=== PATIENT | male | born 1940 | race Caucasian/White ===

== ENCOUNTER 2018-09-22 07:01 | Inpatient (IN) | payer MEDICARE, BC ==
[2018-09-22 07:37] LABS: #Basophils 0.1 thou/uL (0.0-0.2); #Eosinphils 0.2 thou/uL (0.0-0.7); #Lymphocytes 2.6 thou/uL (1.20-3.40); #Monocytes 0.5 thou/uL (0.11-0.59); #Neutrophils 3.6 thou/uL (1.40-6.50); %Basophils 1.5 % (0.0-1.0); %Eosinophils 2.3 % (0.0-10.0); %Lymphocytes 36.8 % (21.0-51.0); %Monocytes 7.3 % (0.0-10.0); %Neutrophils 52.1 % (42.0-75.0); Hemoglobin 14.6 g/dL (14.0-18.0); Mean Corpuscular HGB CONC 31.3 g/dL (32.0-36.0); Mean Corpuscular Hemoglobin 30.5 pg (27.0-31.0); Mean Corpuscular Volume 97.6 fL (78.0-98.0); Mean Platelet Volume 8.7 fL (7.4-10.4); Platelet Count 223 thou/uL (130-400); RBC Distribution Width 12.1 % (11.5-14.5); White Blood Cell (WBC) Count 6.9 thou/uL (4.8-10.8)
[2018-09-22 07:53] LABS: ALT (SGPT) 18 U/L (8-55); AST (SGOT) 27 U/L (5-34); Albumin 3.9 g/dL (3.4-4.8); Alkaline Phosphatase 64 U/L (40-150); Anion Gap 22 mmol/L (10-20); BUN (Urea Nitrogen) 34 mg/dL (8.4-25.7); Bilirubin, Total 0.6 mg/dL (0.2-1.2); Calc. Creatinine Clearance 0 mL/min (70-130); Calcium 9.2 mg/dL (7.8-10.44); Carbon Dioxide 11 mmol/L (23-31); Chloride 98 mmol/L (98-107); Estimated GFR-MDRD 16; Globulin 2.9 g/dL (2.4-3.5); Glucose 101 mg/dL (83-110); Potassium 4.6 mmol/L (3.5-5.1); Protein, Total 6.8 g/dL (5.8-8.1); Sodium 126 mmol/L (136-145)
--- NOTE | 2018-09-22 08:52 | RAD ---
EXAM: CHEST ONE VIEW ABDOMEN TWO VIEWS: History: Abdominal pain, distention, and umbilical hernia. FINDINGS: No significant acute process in the chest. No free intraperitoneal air. Extensive post op changes in the pelvis with a central calcific nodular density of approximately 2.4 cm, possibly a bladder stone. No bowel obstruction. No other overt calculus. IMPRESSION: Extensive post op changes in the pelvis. 2.4 cm diameter fairly densely calcified stone in the centra l pelvis, possibly within the bladder or replaced bladder. POS: [facility]
--- NOTE | 2018-09-22 09:19 | PDOC.FPRHP ---
- History of Present Illness Chief Complaint: Pelvic Pain History of Present Illness: 78 yo Caucasion male w/ pmh of bladder cancer and bladder surgery comes in with the c/c of severe pelvic pain. Pt reports waking up and having sharp shooting pain in his pelvis. Pt reports not being able to pee. Pt reports abdomen feeling tight. Pt is very drowsy during the history. Pt dozes off multiple times and not able to fully obtain full ROS. Pt reports being tired due to the pain. Pt denies any nausea, vomiting, diarrhea or constipation. Pt denies any fever or chills. Denies any recent tingling or burning sensation when peeing. Pt denies seeing any recent blood in the urine - Allergies/Adverse Reactions Allergies Allergy/AdvReac Type Severity Reaction Status Date / Time Penicillins Allergy Verified 05/16/14 09:26 - Home Medications Medication Instructions Recorded Confirmed Type Amlodipine/Benazepril [Lotrel] 1 cap PO DAILY #0 cap 05/16/14 Rx Aspirin 325 mg PO DAILY 05/16/14 05/16/14 History Atorvastatin Calcium [Lipitor] 10 mg PO DAILY 05/16/14 05/16/14 History Metoprolol/Hydrochlorothiazide 1 tab PO DAILY 05/16/14 05/16/14 History [Metoprolol-Hctz 100-25 mg Tab] Multivitamin [Multi-Vitamin Daily] 1 tablet PO DAILY 05/16/14 05/16/14 History Nitroglycerin [Nitrostat] 0.4 mg PO Q5MIN PRN #0 tab 05/16/14 Rx [place]-3 Fatty Acids [Fish Oil] 300 mg PO DAILY 05/16/14 05/16/14 History Comments: Pt did not have medications with him. The above medication list may not be the most UTD medication list. Will have med recd and adjust as needed. - History PMHx: HTN, HLD, COPD, Osteoarthritis PSHx: Bladder Surgery FHx: Unable to obtain Social: used to smoke (quit 2001), Drinks beer daily, No illicit drug use - Review of Systems General: reports: fatigue. denies: fever/chills ENT: denies: nasal congestion Respiratory: denies: cough, shortness of breath Cardiovascular: denies: chest pain, palpitation, edema, orthopnea Gastrointestinal: reports: abdominal pain. denies: nausea, diarrhea, constipation Genitourinary: reports: other (Unable to pee, Severe pelvic pain. No blood noted in the urine). denies: incontinence Skin: denies: rashes, lesions, jaundice Musculoskeletal: denies: pain, stiffness Neurological: denies: numbness, seizure, weakness Psychological: denies: anxiety, depression - Vital signs BP: [144/83] HR: [56] RR: [16] Tmax: [97.7] Pox: [97]% on [RA] Wt: [] - Physical Exam -Constitutional: Pt lethargic and drowsy. Keeps dosing off during the exam. Pt only able to answer short ended questions HEENT: normocephalic and atraumatic, conjunctiva clear, no scleral icterus, normal nasal mucosa, MMM Neck: supple, trachea midline, no LAD, no JVD Heart: RRR, normal S1/S2, no murmurs/rubs/gallops, pulses present, no edema Lungs: CTAB, no respiratory distress, good air movement, no rales/rhonchi, no wheezing Abdomen: bowel sounds present -Abdomen: Moderately distended. Possible umbilical hernia noted. No sign of redness or inflammation. Pt tender to palpation in UQ and in pelvic area. Severe CVA tenderness in R. side. Possible R. sided swelling. Musculoskeletal: normal structure, ROM grossly normal Neurological: no focal deficit, normal sensation -Neurological: Hard to assess due to pt mental status Skin: no rash/lesions, capillary refill <2 seconds, no jaundice -Psychiatric: Pt lethargic, fully to assess mental capacity. FMR H&P: Results - Labs Result Diagrams: 09/22/18 07:19 09/22/18 07:19 Lab results: WBC 6.9 thou/uL (4.8-10.8) 09/22/18 07:19 Hgb 14.6 g/dL (14.0-18.0) 09/22/18 07:19 Hct 46.8 % (42.0-52.0) 09/22/18 07:19 MCV 97.6 fL (78.0-98.0) 09/22/18 07:19 Plt Count 223 thou/uL (130-400) 09/22/18 07:19 Neutrophils % 52.1 % (42.0-75.0) 09/22/18 07:19 Sodium 126 mmol/L (136-145) L 09/22/18 07:19 Potassium 4.6 mmol/L (3.5-5.1) 09/22/18 07:19 Chloride 98 mmol/L (98-107) 09/22/18 07:19 Carbon Dioxide 11 mmol/L (23-31) L 09/22/18 07:19 BUN 34 mg/dL (8.4-25.7) H 09/22/18 07:19 Creatinine 3.69 mg/dL (0.7-1.3) H 09/22/18 07:19 Glucose 101 mg/dL (83-110) 09/22/18 07:19 Calcium 9.2 mg/dL (7.8-10.44) 09/22/18 07:19 Total Bilirubin 0.6 mg/dL (0.2-1.2) 09/22/18 07:19 AST 27 U/L (5-34) 09/22/18 07:19 ALT 18 U/L (8-55) 09/22/18 07:19 Alkaline Phosphatase 64 U/L (40-150) 09/22/18 07:19 Serum Total Protein 6.8 g/dL (5.8-8.1) 09/22/18 07:19 Albumin 3.9 g/dL (3.4-4.8) 09/22/18 07:19 - Radiology Interpretation Abdominal x-ray Status: image reviewed by me, report reviewed by me (Extensive post op changes in pelvis. 2.4 fairly densley calcified stone in central plevis, possibly in bladder) FMR H&P: A/P - Problem List (1) ROSIO (acute kidney injury) Current Visit: Yes Status: Acute Code(s): N17.9 - ACUTE KIDNEY FAILURE, UNSPECIFIED (2) Uropathy, obstructive Current Visit: Yes Status: Acute Code(s): N13.9 - OBSTRUCTIVE AND REFLUX UROPATHY, UNSPECIFIED (3) Urinary retention Current Visit: Yes Status: Acute Code(s): R33.9 - RETENTION OF URINE, UNSPECIFIED (4) Hyponatremia Current Visit: Yes Status: Acute Code(s): E87.1 - HYPO-OSMOLALITY AND HYPONATREMIA (5) Metabolic acidosis, increased anion gap Current Visit: Yes Status: Acute Code(s): E87.2 - ACIDOSIS (6) HTN (hypertension) Current Visit: Yes Status: Acute Code(s): I10 - ESSENTIAL (PRIMARY) HYPERTENSION (7) HLD (hyperlipidemia) Current Visit: Yes Status: Acute Code(s): E78.5 - HYPERLIPIDEMIA, UNSPECIFIED - Plan ROSIO 2/2 Obstructive Uropathy -Cr elevated. Calcification seen on Ab xray. R. side CVA tenderness -Renal U/S ordered. -Sales catheter to be placed. -Will continue to trend BMP -Possibly consult urology if pain doesn't improve after catheter placement -Will check urinalysis and urine cx. No fever or signs of infection at this time. Anion Gap Metabolic Acidosis 2/2 Uremia -BUN elevated. -CO2 11. Anion Gap 17 -Will check ABG -Pt somewhat letargic. If doesn't improve after cather placement and depending on results of ABG will possibly consider Nephrology consult. May benefit from sodium bicarb Hyponatremia -Continue to trend. Hold fluid replacement until obstruction resolved. Do not want to fluid overload HTN -continue home meds HLD -continue home meds GERD PPX: tums DVT PPX: lovenox
[2018-09-22 09:49] LABS: Bilirubin Negative (Negative); Blood, Urine Large (Negative); Clarity CLOUDY (Clear); Glucose, Urine (Dipstick) Negative (Negative); Leukocyte Large (Negative); Nitrite Negative (Negative); Protein, Urine (Dipstick) Negative (Neg-Trace); Urobilinogen 0.2 mg/dL (0.2-1.0)
[2018-09-22 09:51] LABS: RBC/HPF GREATER THAN 50-TNTC HPF (0-3); Squamous Epithelial 0-3 HPF (0-3); Yeast-AUWi Flag 15.8 (0-25.0)
[2018-09-22 10:02] LABS: Bacteria/HPF 2+ HPF (None Seen)
[2018-09-22 10:03] LABS: Hyaline Casts/LPF NONE SEEN LPF (0-3 Hyaline)
[2018-09-22] MEDS ORDERED: cefTRIAXone Sodium 1 MG in Syringe 0 ML IVPB SCH (10:45)
[2018-09-22] MEDS ORDERED: cefTRIAXone\\ROCEPHIN 1 GM VIAL ONE (11:51)
--- NOTE | 2018-09-22 12:22 | HP ---
HISTORY OF PRESENT ILLNESS: I have examined the patient. I have discussed the case with Dr. Justin Juan and agree with his assessment and plan. Briefly, Mr. Rodrigues is a 78-year-old white male patient who, 7 years ago, had a surgery for "bladder cancer." He presented to our ER with sharp shooting pains in his pelvis that was moderately severe in intensity. On examination, he does have a distended abdomen, although the preliminary plain films do not show any evidence of obstruction. A Sales has been placed and he does have urine in his bladder. PHYSICAL EXAMINATION: GENERAL: He is very drowsy, but arousable. VITAL SIGNS: His blood pressure is 140/80, his heart rate is 60, respirations are 16, and he is afebrile. His room air pulse ox is 97%. EAR, NOSE, AND THROAT: Mucous membranes are very dry. NECK: Supple. CARDIAC: PMI is in the 5th intercostal space, midclavicular line. S4 gallop. No murmur or rub noted. Heart sounds are distant. LUNGS: Clear, but breath sounds are distant. There is no wheezing. He is not using accessory muscles and does not demonstrate any evidence of respiratory distress. ABDOMEN: Distended and very tender. He has a midline incision allegedly from previous bladder surgery 7 years ago. Bowel sounds are diminished to absent. EXTREMITIES: Trace edema. NEUROLOGIC: Drowsy but arousable. No focal deficits. LABORATORY DATA: Urinalysis shows large blood, large leukocyte esterase, negative urine nitrites, greater than 50 to TNTC red blood cells, greater than 50 to TNTC white blood cells, 2+ bacteria. Chemistry; sodium is 126, potassium is 4.6, chloride is 98, bicarb is 11, his anion gap is slightly elevated at 22, BUN is 34, creatinine is 3.69, I do not know his baseline. Glucose is 101. Liver enzymes are normal. CBC; white count is 6900, hemoglobin was 14.6, hematocrit 46.8 with an MCV of 97. ASSESSMENT: 1. Possible bowel obstruction. 2. Possible obstructive uropathy. 3. Rule out sepsis, although does not currently meet SIRS criteria. 4. Urinary tract infection, possible. PLAN: We will get CT of the abdomen and pelvis. We will obtain blood and urine cultures and going to give 1 g of Rocephin given his very abnormal urinalysis. Further tests will depend on results of our preliminary examinations. Job ID: [id number]
[2018-09-22] MEDS ORDERED: Morphine 2 MG/ML SYRINGE ONE (12:23)
[2018-09-22] MEDS ORDERED: Acetaminophen 325 MG TAB PO PRN (14:18)
[2018-09-22] MEDS ORDERED: Senokot S 8.6-50 MG TAB PO PRN (14:18)
[2018-09-22] MEDS ORDERED: Calcium Carbonate 500 MG ChewTAB PO PRN (14:18)
[2018-09-22] MEDS ORDERED: Bisacodyl 5 MG TAB PO PRN (14:18)
[2018-09-22] MEDS ORDERED: Acetaminophen 650 MG Suppository PR PRN (14:18)
[2018-09-22] MEDS ORDERED: Ondansetron ODT 4 MG TAB PO PRN (14:18)
[2018-09-22] MEDS ORDERED: Enoxaparin Sodium 30 MG/0.3 ML SYRINGE SC SCH (14:30)
[2018-09-22 14:47] LABS: Magnesium 2.4 mg/dL (1.6-2.6); Phosphorus 6.3 mg/dL (2.3-4.7)
--- NOTE | 2018-09-22 16:17 | ULT ---
BILATERAL RENAL ULTRASOUND: 09/22/18 HISTORY: Obstruction. FINDINGS: The right kidney measures 11.3 cm in length and the left kidney measures 10.4 cm in length. No hydron ephrosis or focal masses seen. Tiny echogenic foci is seen in the kidneys which may represent no obst ructing calculi or vascular calcifications. The right renal pelvis is dilated. There is a Sales destin ter in the urinary bladder. IMPRESSION: No evidence of high grade obstruction. POS: [facility]
--- NOTE | 2018-09-22 17:50 | CT ---
CT OF THE ABDOMEN AND PELVIS WITHOUT IV CONTRAST: 09/22/18 INDICATION: Lower abdominal pain, abdominal distention with history of an artificial bladder. COMPARISON: None. FINDINGS: There is suspected subsegmental volume loss within both lower lobes related to bilateral pleural effu sions. There is enteric contrast within the esophagus. There are coronary artery calcifications. There is mild to moderate ascites. There are numerous stones within the gallbladder. The unopacified liver is unremarkable. Unopacified spleen is unremarkable. The pancreas and adrenal glands are unremarkable. There is mild right hydronephrosis and hydroureter that extends down to the level of the patient's neobladder. There is a stone measuring 2.6 cm in the region of the decompressed neobladder. There is a Sales catheter within the lower aspect of the bladd er. Numerous surgical clips are seen within the pelvis. There are a few mildly prominent loops of sma ll bowel within the central abdomen without a definite transition zone. There is a large left inguina l hernia containing fat, fluid, and portions of the sigmoid colon. There is scattered degenerative and osteoarthritic change. IMPRESSION: 1. Findings of cystectomy with development of a neobladder. There is a large bladder stone withi n the lower portion of the neobladder itself. There is mild right hydronephrosis and hydroureter, con tiguous to the level of the neobladder. 2. Small bilateral pleural effusion and bibasilar atelectasis. 3. Mild to moderate ascites. 4. Cholelithiasis. 5. Colonic diverticulosis without evidence of active diverticulitis. 6. Mildly prominent loops of small bowel within the central abdomen without a definite transitio n zone. This can be artifactual related to distention with the enteric contrast; however, mild enteri tis cannot be entirely excluded. 7. Large left inguinal hernia containing fat, fluid and portions of the sigmoid colon. 8. Fat containing umbilical hernia. POS: [facility]
[2018-09-22 18:24] LABS: Lactic Acid 3.5 mmol/L (0.5-2.2)
[2018-09-22 19:45] LABS: Base Excess (BEa) -4.2 mEq/L (-2.0 to +3.0); CO2 Tension 34.3 mmHg (35.0-45.0); Carboxyhemoglobin (COHb) 2.1 gm% (0.0-3.0); Hemoglobin (Hb) 13.5 g/dL (14.0-18.0); Potassium - ABG Lab 4.18 mmol/L (3.70-5.30); pH, Arterial 7.38 (7.35-7.45)
[2018-09-22] MEDS ORDERED: guaiFENesin 200 MG TAB PO PRN (20:56)
[2018-09-22] MEDS: Atorvastatin Calcium 10 MG TAB PO SCH (21:18)
[2018-09-22] MEDS: Sodium Chloride 0.9% 1,000 ML IV SCH (21:18)
[2018-09-22 22:05] LABS: Anion Gap 15 mmol/L (10-20); BUN (Urea Nitrogen) 40 mg/dL (8.4-25.7); Calc. Creatinine Clearance 35 mL/min (70-130); Calcium 8.6 mg/dL (7.8-10.44); Carbon Dioxide 21 mmol/L (23-31); Chloride 95 mmol/L (98-107); Estimated GFR-MDRD 24; Glucose 82 mg/dL (83-110); Potassium 4.3 mmol/L (3.5-5.1); Sodium 127 mmol/L (136-145)
[2018-09-22 22:17] LABS: O2 Tension (PaO2) 59.2 mmHg (> 70.0)
[2018-09-23] MEDS: Sodium Chloride 0.9% 1,000 ML IV SCH ×3 (05:52→18:30)
[2018-09-23 06:25] LABS: Anion Gap 14 mmol/L (10-20); BUN (Urea Nitrogen) 33 mg/dL (8.4-25.7); Calc. Creatinine Clearance 55 mL/min (70-130); Calcium 8.6 mg/dL (7.8-10.44); Carbon Dioxide 21 mmol/L (23-31); Chloride 97 mmol/L (98-107); Estimated GFR-MDRD 39; Glucose 78 mg/dL (83-110); Potassium 4.2 mmol/L (3.5-5.1); Sodium 128 mmol/L (136-145)
[2018-09-23 06:32] LABS: Band 43 % (5-11); Hemoglobin 14.3 g/dL (14.0-18.0); Lymphocytes 3 % (21-51); MDiff Complete? YES; Mean Corpuscular HGB CONC 32.8 g/dL (32.0-36.0); Mean Corpuscular Hemoglobin 31.5 pg (27.0-31.0); Mean Platelet Volume 8.8 fL (7.4-10.4); Monocytes 5 % (0-10); Neutrophil 48 % (42-75); Platelet Count 159 thou/uL (130-400); RBC Distribution Width 12.1 % (11.5-14.5); Reactive Lymphocytes 1 % (0-10); Red Blood Cell (RBC) Count 4.53 mill/uL (4.70-6.10); White Blood Cell (WBC) Count 10.2 thou/uL (4.8-10.8)
[2018-09-23 06:35] LABS: Reflex for Review?? YES
--- NOTE | 2018-09-23 06:51 | PDOC.FM ---
- Subjective Subjective: Pt A&Ox3. Pt reports still having overall abdominal pain. Pt reports pain medicine helps some but then goes away. Pt states this feels different than when he had kidney stone. Denies any vomiting. Denies any chest pain or SOB. Denies any burning sensation. Denies any fever or chills. Denies any acute events overnight. - Objective MAR Reviewed: Yes Vital Signs & Weight: Vital Signs (12 hours) Temp Pulse Resp BP Pulse Ox 09/23/18 03:09 98.0 F 91 22 H 129/58 L 95 09/22/18 23:37 98.6 F 93 22 H 122/57 L 94 L 09/22/18 20:00 99.4 F 88 18 144/64 H 95 Weight Weight 105.37 kg I&O: 09/21/18 09/22/18 09/23/18 06:59 06:59 06:59 Intake Total 1571 Output Total 1100 Balance 471 Result Diagrams: 09/23/18 05:22 09/23/18 05:22 EKG Reviewed by me: Yes Radiology Reviewed by me: Yes Radiology: Abdominal/Pelvis CT: Findins of cystectomy w/ development of neobladder. Large bladder stone in lower portion. Mild right hydroneprhosis, hydroureter. Cholelithiasis. Chronic diverticulosis Mildly prominent loops of small bowel within the central abdomen w/o a definite transition zone. Can be artifactual related to distention w/ the enteric contrast. However enteritis cannot be entirely excluded. Large left inguinal hernia containing fat, fluid and portions of sigmoid colon Phys Exam - Physical Examination Constitutional: NAD HEENT: PERRLA, moist MMs Neck: no nodes, supple, full ROM Respiratory: no wheezing, no rales, no rhonchi, clear to auscultation bilateral Cardiovascular: RRR, no significant murmur, no rub Belly very distended, Tight. Pain to palpation in all quadrants. No massess Musculoskeletal: no edema, pulses present Neurological: non-focal, normal sensation, moves all 4 limbs Lymphatic: no nodes Psychiatric: normal affect, A&O x 3 Skin: no rash, normal turgor, cap refill <2 seconds Dx/Plan (1) ROSIO (acute kidney injury) Code(s): N17.9 - ACUTE KIDNEY FAILURE, UNSPECIFIED Status: Acute (2) Uropathy, obstructive Code(s): N13.9 - OBSTRUCTIVE AND REFLUX UROPATHY, UNSPECIFIED Status: Acute (3) Urinary retention Code(s): R33.9 - RETENTION OF URINE, UNSPECIFIED Status: Acute (4) Hyponatremia Code(s): E87.1 - HYPO-OSMOLALITY AND HYPONATREMIA Status: Acute (5) HTN (hypertension) Code(s): I10 - ESSENTIAL (PRIMARY) HYPERTENSION Status: Acute (6) HLD (hyperlipidemia) Code(s): E78.5 - HYPERLIPIDEMIA, UNSPECIFIED Status: Acute (7) Abdominal distention Code(s): R14.0 - ABDOMINAL DISTENSION (GASEOUS) Status: Acute (8) SBO (small bowel obstruction) Code(s): K56.609 - UNSP INTESTNL OBST, UNSP TO PARTIAL VERSUS COMPLETE OBST Status: Suspected (9) Strangulated inguinal hernia Code(s): K40.30 - UNIL INGUINAL HERNIA, W OBST, W/O GANGR, NOT SPCF RECUR Status: Suspected (10) Metabolic acidosis, increased anion gap Code(s): E87.2 - ACIDOSIS Status: Resolved - Plan Plan: ROSIO 2/2 Obstructive Uropathy -Cr continues to trend down. Calcification seen on Ab xray. R. side CVA tenderness -LR @120 mls/hr -CT findings read above. -Renal U/S shows no severe acute obstructive process. -Sales catheter in place -Possibly consult urology if pain doesn't improve after catheter placement UTI -U/A shows sign of infection. Lactic acid elevated. -Rocephin for Abx coverage -Urine cx pending. Abdominal Pain 2/2 SBO vs Strangluated Hernia vs Problem above -CT abdominal/pelvis shows some dilated loops of bowel. Abdomen more distended compared to today. Has signs of sigmoid colon in inguinal hernia seen on CT scan. -May consider surgical consult at this time. -NPO for now. -LR @120 mls/hr -Morphine PRN. May adjust pain medications if not getting adequate relief -blood cx pending- NGTD Hyponatremia -Continue to trend. -LR @120 mls/hr HTN -hold home meds as BP is stable at this time. HLD -continue home meds Anion Gap Metabolic Acidosis (resolved) -BUN elevated. -CO2 21. Anion Gap 10 Addendum - Attending - Attending Attestation Date/Time: 09/23/18 4515 I personally evaluated the patient and discussed the management with Dr. Juan. I agree with the History, Examination, Assessment and Plan documented above with any addition or exceptions noted below. Patient here for presumed obstructive uropathy that has consistently been improving after Sales catheter insertion. Consult Urology. He continues to have abdominal distension and pain and exam shows very hypoactive bowel sounds, ileus versus possible obstruction as he is at risk with hernia containing sigmoid colon. Consider decompression. Labs overall improved but continues to be in pain. Will need further workup and mgmt.
[2018-09-23] MEDS: Enoxaparin Sodium 30 MG/0.3 ML SYRINGE SC SCH (08:55)
[2018-09-23] MEDS ORDERED: Atorvastatin Calcium 10 MG TAB PO SCH (09:00)
[2018-09-23] MEDS: Morphine 4 MG/ML VIAL SLOW IVP PRN ×2 (09:06→09:30)
[2018-09-23] MEDS: Ondansetron PF 4 MG/2 ML Vial IVP PRN ×2 (09:17→20:34)
[2018-09-23] MEDS: Fish Oil 1,000 MG CAP PO SCH (09:44)
[2018-09-23] MEDS: Aspirin 325 MG TAB PO SCH (09:44)
[2018-09-23] MEDS: Multivit, Therapeutic 1 TAB PO SCH (09:45)
[2018-09-23] MEDS ORDERED: Famotidine/PF 20 mg/2ml Vial SLOW IVP SCH (09:45)
[2018-09-23] MEDS: cefTRIAXone\\ROCEPHIN 1 GM in Sodium Chloride 0.9% 100 ML IVPB SCH (10:23)
[2018-09-23] MEDS: Aspirin 300 MG Suppository PR SCH (10:24)
[2018-09-23] MEDS ORDERED: MD-Gastroview 120 ML BOT ONE (10:34)
--- NOTE | 2018-09-23 11:07 | RAD ---
ABDOMEN ONE VIEW: History: NG tube placement, abdominal distention. Comparison: None. FINDINGS: Enteric tube is in place although the tip is not well seen. Lung bases are hypoinflated. Ingested ora l contrast appears to be in the colon. IMPRESSION: Poorly visualized enteric tube tip. Repeat examination recommended with better penetration. POS: [facility]
--- NOTE | 2018-09-23 14:39 | RAD ---
SMALL BOWEL FOLLOW THROUGH: History: Small bowel obstruction. Comparison: CT abdomen and pelvis, prior day. FINDINGS: On the diagrammer radiograph there is contrast within the large bowel. Subsequently, Gastrografin was given via the patient's enteric tube. Contrast passed through the smal l through the large bowel in two hours. IMPRESSION: No evidence of small bowel obstruction. POS: [facility]
--- NOTE | 2018-09-23 15:14 | CT ---
CT PELVIS WITH AND WITHOUT URINARY BLADDER CONTRAST: History: Free fluid throughout the pelvis. Possible neobladder leak. Previous bladder cancer with cystectomy a nd neobladder placement. FINDINGS: Images were obtained before contrast administration, after administration of 200 cc dilute contrast i nto the bladder and after drainage of the bladder. The gallstones and prominent arterial calcifications are again demonstrated. Large stone within the u rinary bladder now lies just to the left of the Sales catheter balloon. The neobladder was moderately distended with contrast. Multiple recesses are present. No contrast was seen to extend outside of the lumen of the neobladder. Free fluid within the pelvis was similar in a ppearance to the previous exam. Left inguinal hernia is again demonstrated. IMPRESSION: No evidence of leakage from the neobladder. Large urinary bladder stone and other findings are otherw ise stable. POS: [facility]
[2018-09-23] MEDS: metroNIDAZOLE 500 MG in Premix Bag 1 BAG IVPB SCH (18:25)
--- NOTE | 2018-09-23 19:42 | CON ---
DATE OF CONSULTATION: 09/23/2018 SUBJECTIVE: This is a 78-year-old white male who was admitted yesterday. He cares for his , he gets up early. She has Parkinson's and some dementia, gets up early around 5:30. He has had kind of an upper respiratory tract infection and has been producing a lot of mucus and a lot of coughing and said he was coughing really hard and then developed lower abdominal pain and periumbilical pain that became worse. He had some nausea, but no vomiting. No fevers, no chills. Pain got bothersome enough that he told his that he would need to go to the emergency room and he called the ambulance, he came in, was seen here. At 7 o'clock yesterday morning, his white count was normal, his hemoglobin was 14, his creatinine was 3.69 and his urine showed white cells and red cells and 2+ bacteria. He had a Sales catheter placed in the ER. He has a neobladder, had bladder cancer, had a cystoprostatectomy over [address] Jw Quach, one at [facility], urologist, and Dr. Quach left and moved out of town and the patient says he has not seen a urologist since. He says he normally urinates, sometimes with difficulty through the neobladder. He does have some incontinence in the evenings, which is not unusual. He has not had blood in the urine. He has not seen a urologist for a number of years, he says since Dr. Quach left and that was actually quite a number of years ago. He generally does not cath ever and he does not worry about mucus from this. He had a CAT scan done yesterday, it was done with some oral contrast, but no IV contrast because of elevated creatinine. He had normal-appearing kidneys without stones. He had some mild right hydro. He has decent-sized calcifications probably in the neobladder. It looked to me like he had some free fluid. I asked Dr. Peña to read that x-ray today with me and there is some free fluid in the pelvis. He is in the process of getting a small bowel follow-through because of his abdominal pain. I have talked with Dr. Peña about doing a CT cystogram as I think there is a possibility that he actually has a neobladder rupture. This would explain the rise in the creatinine, the abdominal pain occurring after vigorous coughing. This will be done this afternoon. PAST MEDICAL HISTORY: He has hypertension, hypercholesterolemia. He has had a major bladder surgery as mentioned. He also has some COPD. SOCIAL HISTORY: He has not smoked for well over 15 years. He does drink beer. ALLERGIES: HE HAS AN ALLERGY TO PENICILLIN. MEDICATIONS: He takes; 1. Amlodipine. 2. Aspirin. 3. Lipitor. 4. Toprol. 5. Hydrochlorothiazide. 6. Nitroglycerin p.r.n. 7. Multivitamins. PHYSICAL EXAMINATION: He is tender diffusely. His abdomen is distended. His urine is clear through the catheters. No blood. There is no particulate matter. There is no mucus. He has a left inguinal hernia and some swelling in the left scrotum. Right testicle is normal. Penis is without any other abnormality. IMPRESSION: Abdominal pain, elevated creatinine, which is improved with hydration with a Sales catheter placement and some free fluid on his CAT scan, the concern would be rupture of the neobladder. We will do a CT cystogram here this afternoon and see. If this indeed turns out to be a rupture of this neobladder, I do think this patient needs to be transferred to higher level of care for correction of this. This is not something that I do or take care of and nor do I think it is a common procedure be done at this point in [facility]. Job ID: [id number]
[2018-09-24] MEDS: metroNIDAZOLE 500 MG in Premix Bag 1 BAG IVPB SCH ×3 (01:34→17:14)
[2018-09-24] MEDS: Sodium Chloride 0.9% 1,000 ML IV SCH ×5 (01:39→20:56)
[2018-09-24 04:32] VITALS: BMI 47.7
--- NOTE | 2018-09-24 04:52 | CON ---
DATE OF CONSULTATION: 09/23/2018 HISTORY OF PRESENT ILLNESS: This is a 78-year-old gentleman with past medical history of bladder cancer and bladder surgery with a neobladder, who presented to the emergency room with severe pelvic pain and abdominal pain. General Surgery was consulted for a possible small-bowel obstruction versus granulated hernia. The patient reports his last bowel movement was 2 days ago. He did pass gas yesterday. Reports some nausea, but no vomiting. The patient is awake and alert and just had an NG tube placed to low wall suction. The patient does report a recent cough, although nonproductive. The patient denies any shortness of breath, chest pain , or palpitations. PHYSICAL EXAMINATION: VITAL SIGNS: Temperature 98.5, pulse 99, respirations 19, SpO2 93% on room air , and blood pressure 125/58. GENERAL: The patient is awake, alert, in mild distress due to abdominal discomfort. HEENT: Normocephalic and atraumatic. Mucous membranes are moist. The patient with nasal congestion. Trachea is midline. No JVD. LUNGS: No respiratory distress. Bilateral breath sounds clear to auscultation. The patient with good air movement. No rales or rhonchi noted. CARDIOVASCULAR: Regular rate and rhythm. No murmurs noted. No pedal edema. ABDOMEN: Diffuse tenderness with palpation, worse in the left lower quadrant. The patient with a healed midline abdominal incision. The patient also with abrasion under the umbilicus with bruising above the umbilicus, states that his 's walker fell and hit him in the abdomen. The patient without guarding or rebound tenderness. Abdomen is distended, but soft. The patient with swollen testicles. Pain with palpation. LABORATORY DATA: WBC 10.2, RBC 4.52, hemoglobin 14.3, hematocrit 43.5, platelets 153, bands 43, and lymphocytes 3. Sodium 128, potassium 4.2, chloride 97, BUN 33, creatinine 1.70, and glucose 78. DIAGNOSTICS: Small-bowel follow-through, contrast passed through the small intestine through the large bowel in 2 hours. Impression, no evidence of small bowel obstruction. IMPRESSION: Abdominal pain, small bowel obstruction ruled out. PLAN: No surgical intervention at this time as the patient had a negative small bowel follow-through. Patient continues to have abdominal pain. Will continue to follow this patient. This patient was examined with Dr. Escobar. Job ID: [id number] [facility]ALTHRobert
--- NOTE | 2018-09-24 06:40 | PDOC.FM ---
- Subjective Subjective: Pt reports having sharp shooting pelvic pain overnight. It was like the same pain that made him come to the hospital. Reports having BM yesterday. Pt thinks his hernia has gotten bigger. Pt denies any chest pain or SOB. Denies any vomiting, diarrhea or constipation. Pt reports current pain regimen controlling pain at this time. Nurse reports after pain episode had to replace catheter as it was not draining. Draining now and patient feeling better. - Objective Vital Signs & Weight: Vital Signs (12 hours) Temp Pulse Resp BP Pulse Ox 09/24/18 04:19 97.4 F L 111 H 21 H 127/64 95 09/23/18 20:00 97.9 F 102 H 18 137/68 94 L Weight Weight 146.51 kg I&O: 09/22/18 09/23/18 09/24/18 06:59 06:59 06:59 Intake Total 1571 2433 Output Total 1100 4800 Balance 471 -0855 Result Diagrams: 09/23/18 05:22 09/23/18 05:22 Radiology Reviewed by me: Yes (Abdomen x-ray taken today. Awaiting official read ) Radiology: CT Pelvis- No evidence of leakage from neobladder. Large urinary bladder stone Small Bowel follow through- No evidence of SBO Phys Exam - Physical Examination Constitutional: NAD HEENT: PERRLA, moist MMs Neck: no nodes, full ROM Respiratory: no wheezing, no rales, no rhonchi, clear to auscultation bilateral Cardiovascular: RRR, no significant murmur, no rub Severly distended. Better compared to yesterday Moderately tender to palpation. Hernia appears red, hard to palpation Musculoskeletal: no edema, pulses present Neurological: non-focal, normal sensation, moves all 4 limbs Lymphatic: no nodes Psychiatric: normal affect, A&O x 3 Skin: no rash, normal turgor, cap refill <2 seconds Dx/Plan (1) ROSIO (acute kidney injury) Code(s): N17.9 - ACUTE KIDNEY FAILURE, UNSPECIFIED Status: Acute (2) Uropathy, obstructive Code(s): N13.9 - OBSTRUCTIVE AND REFLUX UROPATHY, UNSPECIFIED Status: Acute (3) Abdominal distention Code(s): R14.0 - ABDOMINAL DISTENSION (GASEOUS) Status: Acute (4) Urinary retention Code(s): R33.9 - RETENTION OF URINE, UNSPECIFIED Status: Acute (5) Hyponatremia Code(s): E87.1 - HYPO-OSMOLALITY AND HYPONATREMIA Status: Acute (6) HTN (hypertension) Code(s): I10 - ESSENTIAL (PRIMARY) HYPERTENSION Status: Acute (7) HLD (hyperlipidemia) Code(s): E78.5 - HYPERLIPIDEMIA, UNSPECIFIED Status: Acute (8) SBO (small bowel obstruction) Code(s): K56.609 - UNSP INTESTNL OBST, UNSP TO PARTIAL VERSUS COMPLETE OBST Status: Ruled-out (9) Strangulated inguinal hernia Code(s): K40.30 - UNIL INGUINAL HERNIA, W OBST, W/O GANGR, NOT SPCF RECUR Status: Suspected (10) Metabolic acidosis, increased anion gap Code(s): E87.2 - ACIDOSIS Status: Resolved - Plan Plan: ROSIO 2/2 Obstructive Uropathy -Awaiting morning BMP. Calcification seen on Ab xray. R. side CVA tenderness -NS @125 mls/hr -CT findings read above. -Renal U/S shows no severe acute obstructive process. -Sales catheter in place -Urology consulted- Lin- Got CT exam as above. Possible concern there was a small leakage in neobladder causing infection. Thinks could have resolved. -Rocephin and Flagyl for abx coverage. UTI -U/A shows sign of infection. Lactic acid elevated upon admission. -abx coverage per above. -Urine cx pending. Abdominal Pain 2/2 SBO vs Strangluated Hernia vs Problem above -CT abdominal/pelvis shows some dilated loops of bowel. -Small Bowel Follow throught negative. 09/24 Ab xray- official read pending. -Pt hernia red and hard today. -Surgery- Dr. Escobar consutled- will follow recs. -NPO for now. - NS @125 mls/hr -Morphine PRN. pain regimen controlling pain at this time. -blood cx pending- NGTD Hyponatremia -Continue to trend. -NS @ 125 mls/hr HTN -hold home meds as BP is stable at this time. HLD -continue home meds Anion Gap Metabolic Acidosis (resolved) -BUN elevated upon admission. -CO2 21. Anion Gap 10 Addendum - Attending - Attending Attestation Date/Time: 09/24/18 0700 I personally evaluated the patient and discussed the management with Dr. Juan. I agree with the History, Examination, Assessment and Plan documented above with any addition or exceptions noted below. Patient continues to have some lower abdominal and diffuse pain. Reports improvement after replacement of Sales and of NGT. Had small liquid BM yesterday and not as distended today. Sales now draining. No evidence of bladder leak on cystogram yesterday. Awaiting further urology recs. Will encourage ambulation today to see if we can get this possible ileus to resolve. Patient continues NPO. Labs stable.
[2018-09-24 07:40] LABS: #Lymphocytes 0.7 thou/uL (1.20-3.40); #Monocytes 0.6 thou/uL (0.11-0.59); %Basophils 0.3 % (0.0-1.0); %Eosinophils 0.1 % (0.0-10.0); %Lymphocytes 6.3 % (21.0-51.0); %Monocytes 5.1 % (0.0-10.0); %Neutrophils 88.2 % (42.0-75.0); Hemoglobin 13.7 g/dL (14.0-18.0); Mean Corpuscular HGB CONC 32.6 g/dL (32.0-36.0); Mean Corpuscular Hemoglobin 31.3 pg (27.0-31.0); Mean Corpuscular Volume 95.9 fL (78.0-98.0); Mean Platelet Volume 8.8 fL (7.4-10.4); Platelet Count 157 thou/uL (130-400); RBC Distribution Width 12.1 % (11.5-14.5); Red Blood Cell (RBC) Count 4.38 mill/uL (4.70-6.10); White Blood Cell (WBC) Count 11.3 thou/uL (4.8-10.8)
[2018-09-24 08:06] LABS: Anion Gap 13 mmol/L (10-20); BUN (Urea Nitrogen) 29 mg/dL (8.4-25.7); Calc. Creatinine Clearance 90 mL/min (70-130); Carbon Dioxide 22 mmol/L (23-31); Chloride 105 mmol/L (98-107); Estimated GFR-MDRD 47; Glucose 105 mg/dL (83-110); Potassium 3.8 mmol/L (3.5-5.1); Sodium 136 mmol/L (136-145)
[2018-09-24] MEDS: Famotidine/PF 20 mg/2ml Vial SLOW IVP SCH (08:06)
[2018-09-24] MEDS: Enoxaparin Sodium 30 MG/0.3 ML SYRINGE SC SCH (08:06)
[2018-09-24] MEDS: Aspirin 300 MG Suppository PR SCH (08:06)
--- NOTE | 2018-09-24 08:43 | RAD ---
KUB: DATE: 09/24/2018. PROVIDED CLINICAL HISTORY: Evaluate NG placement. FINDINGS: Enteric catheter is noted, the tip of which projects over the left upper quadrant. Visualized lung b ases appear clear. Contrast material is seen within bowel. The visualized bowel gas pattern is nons pecific. IMPRESSION: Enteric catheter positioning as above. POS: [facility]
[2018-09-24] MEDS: Multivit, Therapeutic 1 TAB PO SCH (09:04)
[2018-09-24] MEDS: Fish Oil 1,000 MG CAP PO SCH (09:04)
[2018-09-24] MEDS: Enoxaparin Sodium 40 MG/0.4 ML SYRINGE SC SCH (09:06)
[2018-09-24] MEDS: Acetaminophen 500 MG TAB PO SCH ×3 (10:23→20:57)
[2018-09-24] MEDS: cefTRIAXone\\ROCEPHIN 1 GM in Sodium Chloride 0.9% 100 ML IVPB SCH (10:24)
--- NOTE | 2018-09-24 18:00 | PRG ---
DATE OF SERVICE: 09/24/2018 This is the patient I saw in consultation yesterday and I saw him again today at lunchtime, came in with abdominal pain of uncertain etiology. He has a neobladder done by Dr. Quach over 10 years ago. He has a stone in the neobladder and we did a CT cystogram yesterday with Dr. Peña. There was no obvious evidence of a bladder leak, although his presentation was very suspicious for it. I saw him last evening and then I saw him again at lunchtime. He is actually feeling much better each time I see him. He has stable vital signs except for still being slightly tachycardic. His white blood cell count was minimally elevated at 11. His creatinine is staying low. He said he did have some pain early this morning when his catheter stopped draining because of mucus, it was just a small catheter he had in from the ER and the nurses could not irrigate it, they took it out and put a new one in. He says he has had really no discomfort since that time. He pulled his NG tube out last night and he has done well with it out and has actually been started on clear liquids at lunchtime today. His urine culture is not finalized yet. His abdomen is soft and much less tender than it was yesterday. His urine is clear. I am not still 100% sure that he did not have a small bladder leak when he presented to the ER yesterday. There is certainly nothing on the cystogram that showed it, but only 200 mL replaced, but it was CT cystogram also. In addition to that he had a lot of air in his neobladder from the catheter and there was no free air in the belly either. However, I would like to leave this larger catheter which I have asked them to place and they have placed today a 22-Polish in for 10-14 days and I would like to do a formal cystogram at that time before we tackle the stone in the neobladder. I think the plan even it was a bladder leak would be to just let it heal over with catheter drainage unless he becomes sick again with sepsis or abdominal pain or rising creatinine. I have discussed this with the family practice residents. Also let Dr. Jayme Terrell who is covering this weekend know about him, so he will be aware of him, also to see him, but certainly would be available if necessary to consult. Alex ID: [id number]
--- NOTE | 2018-09-24 19:07 | PRG ---
DATE OF SERVICE: 09/24/2018 SUBJECTIVE: Mr. Rodrigues is a 78-year-old man, who I am seeing to exclude acute small-bowel obstruction as the etiology of abdominal pain. The patient reported to me this morning that the Sales catheter malfunctioned overnight, and at that time, he was not able to pass urine, his pain was exacerbated. Once the Sales catheter was replaced, his abdominal pain has since resolved. This morning, he denies any significant abdominal pain. He denies any nausea or vomiting. He inadvertently pulled out the NG tube, which was not actually putting out a lot over the last 24 hours. He did have a bowel movement yesterday. The patient denies any flatus. PHYSICAL EXAMINATION: VITAL SIGNS: Vital signs today are pertinent for a blood pressure of 125/64, pulse 103, respiratory rate is 19, temperature 98.7 degrees Fahrenheit, and oxygen saturation 95% on room air. ABDOMEN: Soft and moderately distended. Definitely it is less distended compared to yesterday. He has minimal abdominal tenderness to palpation with no gross rebound tenderness present. : Sales catheter is in place, draining clear kiana urine. LABORATORY FINDINGS: Today include a CBC with 11,300 white blood cells, hemoglobin and hematocrit of 13.7 and 42.1 respectively. Platelet count is 157,000. Metabolic profile; sodium 136, potassium is 3.8, chloride is 105, bicarb is 22, BUN 29, creatinine is 1.45, glucose 105. Note that serum creatinine on admission 2 days ago was 3.69 and has been progressively improving since. The patient did have a Gastrografin small-bowel follow-through yesterday, which clearly was unremarkable as the contrast readily passed into the colon within 2 hours. He has a non-strangulated inguinal hernia, which has been chronic. I doubt the etiology of his abdominal pain is of general surgical matter. Therefore, initiating oral intake at this time. If the patient tolerates clear liquid diet, we will advance to a general diet. No surgical indication at this time. Job ID: [id number]
[2018-09-24] MEDS: Atorvastatin Calcium 10 MG TAB PO SCH (20:56)
[2018-09-24] MEDS: Polyethylene Glycol 3350 17 GM Packet PO SCH (20:57)
--- NOTE | 2018-09-24 23:17 | CON ---
DATE OF CONSULTATION: 09/24/2018 REASON FOR CONSULTATION: Concern for orthotopic neobladder rupture. HISTORY OF PRESENT ILLNESS: Mr. 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 Mr. Rodrigues underwent a cystoprostatectomy with orthotopic neobladder on 11/25/[address] Ricky Hernandez, my former partner at the [facility]. Mr. Rodrigues had unfortunate finding of stage pT3b bladder cancer with penetration of the cancer through the muscle layer and into the perivesicular fat. The patient had subsequent CT scanning which did not demonstrate any evidence of recurrence back in 2007. Mr. Rodrigues has been more or less lost to urologic followup since Dr. Hernandez moved from the area. Mr. Rodrigues's insurance is also changed and he has had some psychological stressors with his developing Alzheimer disease, and in addition Parkinson disease. He is her sole care provider. and Mrs. Rodrigues had an unfortunate family event around 2012 with the passing of her son and his stepson, in a motor vehicle accident. This still is a psychological stressor for the patient himself. Mr. Rodrigues on this admission presents with a complaint of acute lower abdominal discomfort which developed in association with sleeping. The patient apparently is fairly exhausted from the 24 x 7 care of his and fell into a deep sleep. When he woke up, he found himself with a sensation of pain in his lower abdomen and also wanted to void, but was not able to. The patient ultimately presented to the [facility] Emergency Department on 09/22/2018 and underwent an emergency room evaluation. He was admitted to the family medicine service. The patient underwent laboratory testing at admission, which showed a large jump in his creatinine since 2013. The patient has had a baseline creatinine of around 1.2, and this was finding as recently as 06/07/2018 when it was 1.21 mg/dL. The patient's creatinine jumped to 3.69 and with a Sales catheter placement is slowly drifted down over time. The patient did undergo CT scanning of his abdomen which did not demonstrate any obvious leak from the orthotopic neobladder. The patient's white count was noted on today's laboratory to be elevated at 11,300. At admission, his white count was only 6900. The patient does report that on the evening of 09/23/2018 to the morning of 09/24/2018, he felt that his catheter was obstructed and he did have a white cell bump at that point with an increased neutrophil count also developing. During the hospitalization, the patient has been afebrile. His highest temperature was 99.4 on 09/22/2018 at about 8:00 p.m. At the present time, the patient has a chronic left inguinal hernia, which has been present for many years. In fact, this was present and was repaired at the time of the patient's orthotopic neobladder. The patient's orthotopic neobladder on 11/25/2006, included both a left inguinal hernia repair and in addition an appendectomy. ALLERGIES: THE PATIENT HAS AN ALLERGY TO PENICILLINS. PAST MEDICAL HISTORY: 1. Muscle invasive bladder cancer, status post orthotopic ileal neobladder on 11/25/2006. 2. Multiple prior transurethral resections of bladder tumor. 3. Hypertension. 4. Hypercholesterolemia. 5. Obesity. 6. Chronic left inguinal hernia. SOCIAL HISTORY: The patient is a former cigarette smoker, conservatively he has more than 40 pack years of cigarette smoking. He has not smoked since 5 years before his orthotopic neobladder, quitting around 2001. Does have a history of beer consumption. 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 FAMILY MEDICAL HISTORY: Positive for history of myocardial infarction in his father. The patient's stepson in a car accident and this has been a psychological stressor for the patient. REVIEW OF SYSTEMS: HEAD, EYES, EARS, NOSE, AND THROAT: Negative. PULMONARY: Negative except for COPD issues. CARDIAC: The patient has undergone previous evaluations for substernal chest discomfort by Dr. Eason in the past, but he had no findings of ischemic changes nor evidence of myocardial infarction. PHYSICAL EXAMINATION: VITAL SIGNS: The patient's temperature currently 99.5, pulse 88, O2 saturation on room air is 98%, blood pressure is 148/64. GENERAL: This is a pleasant, heavyset white male, in no apparent distress. HEAD, EYES, EARS, NOSE AND THROAT: Extraocular movements are intact. Sclerae are anicteric. Oropharynx is clear. NECK: Supple. LUNGS: Clear to auscultation bilaterally with COPD type changes. CARDIAC: Regular rate and rhythm without murmur, rub, or gallop. ABDOMEN: Soft and nontender. There is a large midline surgical incisional scar compatible with the patient's known history of orthotopic neobladder construction with cystoprostatectomy. GENITOURINARY: The patient's phallus has an indwelling Sales catheter which is draining straw-colored urine. There is no gross purulence to it. Scrotum, right hemiscrotum appears relatively benign. Left hemiscrotum appears to have a probable recurrent chronic left inguinal hernia present. It is moderately tender on physical examination. Digital rectal examination was not performed. Review of the patient's pathology report from his original cystoprostatectomy did not show any evidence of prostate cancer (there is no family history of prostate cancer either). EXTREMITIES: The patient has trace edema of the bilateral lower extremities. He has minor venous stasis changes to the legs. There is 1+ pitting edema. LABORATORY STUDIES: As previously noted, the patient had a large bump in his creatinine at admission. Current creatinine is down to 1.45, it was elevated to 3.69 at admission. The remainder of electrolytes except for blood urea nitrogen which is 29 and carbon dioxide which is 22 are all within normal limits. Hematologic profile shows the patient's white count elevated today at 11,300. There is left shift with 88.2% neutrophils. RADIOLOGIC STUDIES: The patient underwent CT scan of the abdomen and pelvis, which was performed on day of admission on 09/22/2018. This demonstrates well a calculus within the patient's orthotopic neobladder measuring about 2.5 cm in diameter. The patient's orthotopic neobladder appears otherwise normal. Lack of contrast in the study limits evaluation of the patient's kidneys bilaterally, but there is no obvious evidence of hydronephrosis or hydroureter on either side. There is no clear evidence of leakage from the orthotopic neobladder. Lack of intra-neobladder contrast limits this evaluation, however. A small bowel follow-through study shows appearance of contrast in the patient's colon within 2 hours, suggesting the patient does not have a small bowel obstruction. A pelvis CT was performed on 09/23/2018. Intravesical contrast was administered for a CT cystogram study. This does not demonstrate any clear evidence of extravasation from the patient's orthotopic neobladder. ASSESSMENT AND PLAN: 1. Acute presentation highly suggestive of an acute rupture of the orthotopic neobladder. This could not be demonstrated on any of the imaging studies so far. Presentation with marked elevation in the patient's serum creatinine, elevation of white blood cell count and acute onset after a period where the patient was sleeping for a long period of time are all highly suggestive of an acute rupture of the orthotopic neobladder. Outlet obstruction secondary to mucus accumulation and/or bladder stone are likely contributors. The patient did not have a large volume of urine in his bladder at ER evaluation by the report that I received. Based on this, I believe the patient's bladder decompressed in the peritoneal space resulting in the findings as noted above. Since neobladder urine is almost never sterile, and subject to neobladder colonization, the presentation is one that probably would benefit from an extended observation. At the present time, the patient needs to have an indwelling Sales catheter which needs to not have any dependent loops in it. An alternative would be vented trauma suction to the bladder. At present time, I think the patient could be managed simply with a Sales catheter as long as it drains directly into the Sales bag. I am in agreement with assessment of this patient, which is highly suggestive of a small leak resulting in decompression. 2. Bladder outlet obstruction, most likely secondary to large mucus accumulation. The patient has not been hand irrigating his bladder on a daily basis, which is highly recommended. In my experience, all the patients who have had bladder ruptures were not routine irrigators of the mucus that is produced by the ileal segments. Due to this, the patient develops very viscous urine which will not flow through the urethral anastomosis and this results in the acute rupture of the bladder, particularly when the patient is intoxicated or in the case of patient's sleeping who has sleep apnea and has excessive nighttime urine production. Therefore, a daily irrigation of this patient's orthotopic neobladder would be recommended when he is not in a catheterized state. This patient should have routine followup with a primary urologist due to his history of muscle invasive bladder cancer, which penetrated into the perivesicular fat and also due to the fact that he has a very complicated orthotopic neobladder which requires high-level participation on the part of the patient. Over 70 minutes of initial consultation and assessment time spent in evaluation of this patient. Job ID: [id number]
[2018-09-25] MEDS: metroNIDAZOLE 500 MG in Premix Bag 1 BAG IVPB SCH ×3 (02:58→17:30)
[2018-09-25] MEDS: Acetaminophen 500 MG TAB PO SCH ×4 (02:58→20:49)
[2018-09-25] MEDS: Sodium Chloride 0.9% 1,000 ML IV SCH ×2 (02:59→07:48)
--- NOTE | 2018-09-25 07:01 | PDOC.FM ---
- Subjective Subjective: Pt reports doing better this night. Denies any acute events overnight. Denies any burning sensation. Denies any pain attacks. reports pain well controlled at this time. Denies any fever or chills. Denies any n/v/d/c. Denies any chest pain , SOB, fever or chills. Pt has no other concerns at this time. - Objective MAR Reviewed: Yes Vital Signs & Weight: Vital Signs (12 hours) Temp Pulse Resp BP Pulse Ox 09/25/18 04:00 98.4 F 93 18 134/63 97 09/24/18 19:00 98.1 F 72 16 142/71 H 93 L Weight Weight 101.06 kg I&O: 09/23/18 09/24/18 09/25/18 06:59 06:59 06:59 Intake Total 1571 2433 2380 Output Total 1100 4800 1550 Balance 471 -4215 830 Result Diagrams: 09/24/18 07:18 09/24/18 07:18 EKG Reviewed by me: Yes Radiology Reviewed by me: Yes (No new imaging to review at this time. ) Phys Exam - Physical Examination Constitutional: NAD HEENT: PERRLA, moist MMs Neck: no nodes, no JVD, supple, full ROM Respiratory: no wheezing, no rales, no rhonchi, clear to auscultation bilateral Cardiovascular: RRR, no significant murmur, no rub Gastrointestinal: soft, positive bowel sounds Moderately distended. No pain to palpation when I press this morning Musculoskeletal: no edema, pulses present Neurological: non-focal, normal sensation, moves all 4 limbs Psychiatric: normal affect, A&O x 3 Skin: no rash, normal turgor, cap refill <2 seconds Dx/Plan (1) ROSIO (acute kidney injury) Code(s): N17.9 - ACUTE KIDNEY FAILURE, UNSPECIFIED Status: Acute (2) Uropathy, obstructive Code(s): N13.9 - OBSTRUCTIVE AND REFLUX UROPATHY, UNSPECIFIED Status: Acute (3) Abdominal distention Code(s): R14.0 - ABDOMINAL DISTENSION (GASEOUS) Status: Acute (4) Urinary retention Code(s): R33.9 - RETENTION OF URINE, UNSPECIFIED Status: Acute (5) Hyponatremia Code(s): E87.1 - HYPO-OSMOLALITY AND HYPONATREMIA Status: Resolved (6) HTN (hypertension) Code(s): I10 - ESSENTIAL (PRIMARY) HYPERTENSION Status: Acute (7) HLD (hyperlipidemia) Code(s): E78.5 - HYPERLIPIDEMIA, UNSPECIFIED Status: Acute (8) Metabolic acidosis, increased anion gap Code(s): E87.2 - ACIDOSIS Status: Resolved (9) SBO (small bowel obstruction) Code(s): K56.609 - UNSP INTESTNL OBST, UNSP TO PARTIAL VERSUS COMPLETE OBST Status: Ruled-out (10) Strangulated inguinal hernia Code(s): K40.30 - UNIL INGUINAL HERNIA, W OBST, W/O GANGR, NOT SPCF RECUR Status: Ruled-out - Plan Plan: ROSIO 2/2 Obstructive Uropathy -Awaiting morning BMP. Calcification seen on Ab xray. -NS @125 mls/hr -CT findings do not show bladder leak but do show stone. -Renal U/S shows no severe acute obstructive process. -Sales catheter in place -Urology consulted- Junito- Got CT exam as above. Possible concern there was a small leakage in neobladder causing infection. Thinks could have resolved. -Rocephin and Flagyl for abx coverage. UTI -U/A shows sign of infection. Lactic acid elevated upon admission. -abx coverage per above. -Urine cx shows mixed normal paras. Abdominal Pain 2/2 urinary leak. Urology- Lin/Xander- believe pt had urinary leak into abdomen. Likely cause of infection and distention. Catheter in place. Following their recs. -CT abdominal/pelvis shows some dilated loops of bowel. -Small Bowel Follow through negative. -Diet- clear liquid- advance as tolerated. - NS @125 mls/hr -Morphine PRN. pain regimen controlling pain at this time. -blood cx pending- NGTD Hyponatremia (resolved) -Continue to trend -NS @ 125 mls/hr until tolerating more PO HTN -hold home meds as BP is stable at this time. HLD -continue home meds Anion Gap Metabolic Acidosis (resolved) -BUN elevated upon admission, has trended down. -CO2 22. Anion Gap negative
[2018-09-25 07:24] LABS: #Eosinphils 0.2 thou/uL (0.0-0.7); #Lymphocytes 1.1 thou/uL (1.20-3.40); #Monocytes 0.5 thou/uL (0.11-0.59); #Neutrophils 8.8 thou/uL (1.40-6.50); %Basophils 0.2 % (0.0-1.0); %Eosinophils 2.2 % (0.0-10.0); %Lymphocytes 10.1 % (21.0-51.0); %Monocytes 4.7 % (0.0-10.0); %Neutrophils 82.8 % (42.0-75.0); Hemoglobin 11.9 g/dL (14.0-18.0); Mean Corpuscular HGB CONC 32.4 g/dL (32.0-36.0); Mean Corpuscular Hemoglobin 31.4 pg (27.0-31.0); Mean Corpuscular Volume 96.8 fL (78.0-98.0); Mean Platelet Volume 8.4 fL (7.4-10.4); Platelet Count 158 thou/uL (130-400); RBC Distribution Width 12.1 % (11.5-14.5); Red Blood Cell (RBC) Count 3.79 mill/uL (4.70-6.10); White Blood Cell (WBC) Count 10.6 thou/uL (4.8-10.8)
[2018-09-25 07:54] LABS: ALT (SGPT) 11 U/L (8-55); AST (SGOT) 19 U/L (5-34); Albumin 2.8 g/dL (3.4-4.8); Alkaline Phosphatase 58 U/L (40-150); Anion Gap 9 mmol/L (10-20); BUN (Urea Nitrogen) 19 mg/dL (8.4-25.7); Bilirubin, Total 0.5 mg/dL (0.2-1.2); Calc. Creatinine Clearance 111 mL/min (70-130); Calcium 8.1 mg/dL (7.8-10.44); Carbon Dioxide 23 mmol/L (23-31); Chloride 109 mmol/L (98-107); Estimated GFR-MDRD Greater than 90; Globulin 2.3 g/dL (2.4-3.5); Glucose 91 mg/dL (83-110); Potassium 3.1 mmol/L (3.5-5.1); Protein, Total 5.1 g/dL (5.8-8.1); Sodium 138 mmol/L (136-145)
[2018-09-25] MEDS: Polyethylene Glycol 3350 17 GM Packet PO SCH ×2 (07:55→20:47)
[2018-09-25] MEDS: Enoxaparin Sodium 40 MG/0.4 ML SYRINGE SC SCH (08:34)
[2018-09-25] MEDS: Fish Oil 1,000 MG CAP PO SCH (08:34)
[2018-09-25] MEDS: Aspirin 325 MG TAB PO SCH (08:34)
[2018-09-25] MEDS: Multivit, Therapeutic 1 TAB PO SCH (08:34)
[2018-09-25] MEDS: Famotidine/PF 20 mg/2ml Vial SLOW IVP SCH (08:35)
--- NOTE | 2018-09-25 09:47 | RAD ---
ABDOMEN 1 VIEW: HISTORY: Abdominal pain. Partial bowel obstruction. FINDINGS: Gas and contrast material are again demonstrated throughout the colon and rectum. Small bowel gas pa ttern is nonspecific. Hemostasis clips over the pelvis. Nasogastric tube no longer visible. IMPRESSION: 1. Contrast material throughout the colon has decreased slightly, with significant amount remaining. Bowel pattern is nonspecific. 2. Interval removal of the nasogastric tube. POS: [facility]
--- NOTE | 2018-09-25 10:37 | PRG ---
DATE OF SERVICE: 09/25/2018 Mr. Rodrigues has made a remarkable recovery since the last time I saw him several days ago. He is awake and alert. His abdomen is much less distended and he is having regular bowel movements. Surgical intervention was not necessary. His lactic acid has dropped nicely from 3.5 down to 2. He appears much more well hydrated and his electrolytes are approaching normalcy. Potassium still slightly low at 3.1. He is nearing time for discharge. Job ID: [id number]
[2018-09-25] MEDS ORDERED: Nitroglycerin 0.4 MG TAB (25 Tab Bottle) SL PRN (11:27)
[2018-09-25] MEDS ORDERED: Amlodipine 5 mg/Benazepril 10 mg CAP PO SCH (11:30)
[2018-09-25] MEDS: cefTRIAXone\\ROCEPHIN 1 GM in Sodium Chloride 0.9% 100 ML IVPB SCH (12:20)
[2018-09-25] MEDS ORDERED: Potassium Chloride 20 MEQ TAB PO SCH (14:30)
--- NOTE | 2018-09-25 15:58 | PRG ---
DATE OF SERVICE: 09/25/2018 REASON FOR CONSULTATION: Concern for orthotopic neobladder rupture. BRIEF HISTORY: Mr. Tutu Rodrigues is a pleasant 78-year-old white male, who underwent a previous cystoprostatectomy with orthotopic neobladder on 11/25/2006, by Dr. Jw Quach. The patient has not had routine urologic followup since the departure of Dr. Quach from the [facility]. The patient presented to the emergency department of the [facility] on 09/22/2018, due to acute onset lower abdominal pain and difficulty with voiding. The patient was found to have a large jump in his creatinine, which is since his last creatinine testing in May showed a creatinine 1.21. The patient's creatinine jumped to 3.69. Since placement of a Sales catheter, the patient's creatinine gradually declined. The patient had a moderate elevation in his white blood cell count on 09/24/2018 to 11.3. The patient today has undergone a KUB examination of his abdomen to Followup contrast that was administered for Dr. Escobar's Service to follow him to assess for small bowel obstruction. At the present time, the patient appears to have more of an ileus type presentation as opposed to a small bowel obstruction with contrast extending into his colon. The patient's orally administered Gastrografin has not yet cleared his system. The patient may benefit from further cystogram studies to evaluate for leak from his neobladder. Mr. Rodrigues reports that he has done well overnight. He has no complaints of fever, chills, or other abdominal pain complaints. He does notice that there is some bilateral discomfort to the lower abdomen. He has an indwelling Sales catheter into his neobladder and does have a known bladder calculus. Urine has produced mucus on several occasions overnight. PHYSICAL EXAMINATION: VITAL SIGNS: The patient has been afebrile overnight, current temperature is 97.6, pulse is 105, respirations 18, room air saturation is 100%, and blood pressure is 136/61. GENERAL: This is a pleasant, elderly white male in no apparent distress. HEAD, EYES, EARS, NOSE, AND THROAT: Extraocular movements are intact. Sclerae are anicteric. Oropharynx is clear. NECK: Supple. LUNGS: Clear to auscultation bilaterally. CARDIAC: Regular rate and rhythm. ABDOMEN: Soft and nontender superior to the umbilicus. There is a midline supraumbilical to infraumbilical surgical incisional scar, which is well healed. GENITOURINARY: Finds a left inguinal hernia. This is chronic in appearance and remains in the degree of tenderness to the left hemiscrotum. The phallus is without external lesion. An indwelling Sales catheter is in place and is draining straw-colored urine with a degree of mucus present in it. There is no gross blood. NEUROLOGIC: The patient is ambulatory and is able to move all 4 extremities against gravity. He is alert and oriented today. LABORATORY STUDIES: The patient's white count down to 10.6 today. Left shift moderately improved to 82.8% neutrophils, ANC also improved to 8.8 from previous value of 10.0. Serum chemistry show continuing fall and blood urea nitrogen down to 19, today with a current creatinine of 0.81. Microbiology evaluation shows no evidence of blood culture growth at 48 hours and the patient's urine culture final is negative for organisms. There is mixed skin paras at a 50,000 to 75,000 CFU count present. ASSESSMENT AND PLAN: 1. Concern regarding microorganisms in the patient's urine, all neobladder urine contains microorganisms and is not of a concern unless the patient is actively ill. At the present time, this patient appears to have undergone a leak event and antibiotic coverage is appropriate, although the duration of the course should probably be limited. 2. Concern for leak, a CT cystogram study has not shown a leak from the patient's neobladder. This patient has a presentation highly suggestive of a leak type of event and may merit further followup imaging studies to determine whether an active leak is present. At the present time, urine is diverted to be a Sales catheter and irrigation of the Sales catheter may benefit the patient by further clearance of mucus from the bladder. 3. Bladder calculus. This will need to be addressed probably in a post discharge state in this patient. The patient is established with Dr. Kam Ceballos and will follow up with him for further evaluation and treatment of his bladder calculus. 4. Clearance of contrast and pre-cystogram studies, current KUB study from today demonstrates residual contrast and the patient's colon left over from his small bowel follow-through study. This probably should clear completely before attempting any imaging studies to further evaluate the patient's bladder. A KUB is ordered for Thursday. Over 35 minutes of consultation and assessment time spent in the evaluation of this patient today. Job ID: [id number]
[2018-09-25] MEDS: Atorvastatin Calcium 10 MG TAB PO SCH (20:49)
[2018-09-26 05:12] LABS: Anion Gap 11 mmol/L (10-20); BUN (Urea Nitrogen) 17 mg/dL (8.4-25.7); Calc. Creatinine Clearance 108 mL/min (70-130); Calcium 8.1 mg/dL (7.8-10.44); Carbon Dioxide 25 mmol/L (23-31); Chloride 108 mmol/L (98-107); Estimated GFR-MDRD 90; Glucose 89 mg/dL (83-110); Potassium 3.6 mmol/L (3.5-5.1); Sodium 140 mmol/L (136-145)
[2018-09-26] MEDS: Acetaminophen 500 MG TAB PO SCH ×4 (05:16→21:42)
[2018-09-26] MEDS: metroNIDAZOLE 500 MG in Premix Bag 1 BAG IVPB SCH ×2 (05:17→09:28)
--- NOTE | 2018-09-26 07:22 | PDOC.FM ---
- Subjective Subjective: Pt doing well this morning. Denies any acute events overnight. Reports having BM overnight. Denies any chest pain or SOB. Denies any abdominal pain. Denies any fever or chills. Pt reports doing much better at this time. - Objective MAR Reviewed: Yes Vital Signs & Weight: Vital Signs (12 hours) Temp Pulse Resp BP Pulse Ox 09/26/18 04:00 98.3 F 76 18 141/65 H 93 L Weight Weight 101.333 kg I&O: 09/25/18 09/26/18 09/27/18 06:59 06:59 06:59 Intake Total 2380 1650 Output Total 1550 1675 Balance 830 -25 Result Diagrams: 09/25/18 07:07 09/26/18 04:12 EKG Reviewed by me: Yes (Sinus rhythm) Radiology Reviewed by me: Yes (09/26 ab x-ray official read pending. Appears to be improved. ) Radiology: 09/26 ab x-ray: my read. appears to be less dilated Phys Exam - Physical Examination Constitutional: NAD HEENT: PERRLA, moist MMs Neck: no nodes, supple, full ROM Respiratory: no wheezing, no rales, no rhonchi, clear to auscultation bilateral Cardiovascular: RRR, no significant murmur, no rub Gastrointestinal: positive bowel sounds Moderately distended Musculoskeletal: no edema, pulses present Neurological: non-focal, normal sensation, moves all 4 limbs Lymphatic: no nodes Psychiatric: normal affect, A&O x 3 Skin: no rash, normal turgor, cap refill <2 seconds Dx/Plan (1) ROSIO (acute kidney injury) Code(s): N17.9 - ACUTE KIDNEY FAILURE, UNSPECIFIED Status: Acute (2) Uropathy, obstructive Code(s): N13.9 - OBSTRUCTIVE AND REFLUX UROPATHY, UNSPECIFIED Status: Acute (3) Abdominal distention Code(s): R14.0 - ABDOMINAL DISTENSION (GASEOUS) Status: Acute (4) Urinary retention Code(s): R33.9 - RETENTION OF URINE, UNSPECIFIED Status: Acute (5) Hyponatremia Code(s): E87.1 - HYPO-OSMOLALITY AND HYPONATREMIA Status: Resolved (6) HTN (hypertension) Code(s): I10 - ESSENTIAL (PRIMARY) HYPERTENSION Status: Acute (7) HLD (hyperlipidemia) Code(s): E78.5 - HYPERLIPIDEMIA, UNSPECIFIED Status: Acute (8) Metabolic acidosis, increased anion gap Code(s): E87.2 - ACIDOSIS Status: Resolved (9) SBO (small bowel obstruction) Code(s): K56.609 - UNSP INTESTNL OBST, UNSP TO PARTIAL VERSUS COMPLETE OBST Status: Ruled-out (10) Strangulated inguinal hernia Code(s): K40.30 - UNIL INGUINAL HERNIA, W OBST, W/O GANGR, NOT SPCF RECUR Status: Ruled-out - Plan Plan: ROSIO 2/2 Obstructive Uropathy Calcification seen on Ab xray. -PO fluids -CT findings do not show bladder leak but do show stone. -Renal U/S shows no severe acute obstructive process. -Sales catheter in place -Urology consulted- Junito- Got CT exam as above. Possible concern there was a small leakage in neobladder causing infection. Thinks could have resolved. Wants contrast cleared from colon. KUB 2/10 today official read pending. Likely keep catheter in for 10 days and they will reassess. Will continue to follow recommendations. -Rocephin and Flagyl for abx coverage- can likely transition to oral UTI -U/A shows sign of infection. Lactic acid elevated upon admission. -abx coverage per above. -Urine cx shows mixed normal paras. Abdominal Pain 2/2 urinary leak. Urology- Lin/Xander- believe pt had urinary leak into abdomen. Likely cause of infection and distention. Catheter in place. Following their recs. -CT abdominal/pelvis shows some dilated loops of bowel. -Small Bowel Follow through negative. -Diet- clear liquid- advance as tolerated. -Morphine PRN. pain regimen controlling pain at this time. -blood cx - NGTD Hyponatremia (resolved) -Continue to trend Hx of Sinus Tachycardia -Pt had run of sinus Tach yesterday. Had not been on home meds due to NPO. No longer NPO -Restarted home meds. HTN -hold home meds as BP is stable at this time. HLD -continue home meds Anion Gap Metabolic Acidosis (resolved) -BUN elevated upon admission, has trended down. -CO2 22. Anion Gap negative
--- NOTE | 2018-09-26 08:23 | RAD ---
KUB: COMPARISON: 09/25/2018. HISTORY: Evaluation of previous contrast in colon. Bowel obstruction. FINDINGS: Anterior view of the abdomen shows a nonspecific, nonobstructed bowel gas pattern. There has been ev acuation of more of the contrast from the colon with a small amount of contrast seen in the left colo n extending down to the sigmoid colon. Surgical clips are seen in the pelvis. Degenerative changes are seen in the spine. IMPRESSION: Nonobstructive bowel gas pattern. POS: MAHNAZ
[2018-09-26] MEDS ORDERED: METOPROLOL PO SCH (09:00)
[2018-09-26] MEDS ORDERED: HYDROCHLOROTHIAZIDE PO SCH (09:00)
[2018-09-26] MEDS ORDERED: [UNRECOGNIZED DRUG - OTHER] PO SCH (09:00)
[2018-09-26] MEDS: Amlodipine 5 mg/Benazepril 10 mg CAP PO SCH (09:27)
[2018-09-26] MEDS: Fish Oil 1,000 MG CAP PO SCH (09:27)
[2018-09-26] MEDS: Metoprolol Tartrate 100 MG TAB PO SCH (09:27)
[2018-09-26] MEDS: Enoxaparin Sodium 40 MG/0.4 ML SYRINGE SC SCH (09:27)
[2018-09-26] MEDS: Aspirin 325 MG TAB PO SCH (09:27)
[2018-09-26] MEDS: Hydrochlorothiazide 25 MG TAB PO SCH (09:27)
[2018-09-26] MEDS: Famotidine/PF 20 mg/2ml Vial SLOW IVP SCH (09:27)
[2018-09-26] MEDS: Multivit, Therapeutic 1 TAB PO SCH (09:27)
--- NOTE | 2018-09-26 11:18 | PRG ---
DATE OF SERVICE: 09/26/2018 Mr. Rodrigues continues to look and feel much better. He was just re-examined by Urology. He will be likely ready for discharge tomorrow after being seen by Dr. Terrell. In the event, clinically, he remains vastly improved. Job ID: [id number]
--- NOTE | 2018-09-26 12:53 | CON ---
DATE OF CONSULTATION: 09/26/2018 INITIAL REASON FOR CONSULTATION: Concern for orthotopic neobladder rupture. BRIEF HISTORY: Mr. 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 Mr. Rodrigues had a cystoprostatectomy with orthotopic neobladder on 11/25/[address] Ricky Hernandez, my former partner at [facility]. Mr. Rodrigues had unfortunate finding of stage pT3b bladder cancer with penetration of the cancer through the muscle layer into the perivesicular fat. Mr. Rodrigues has been taking / care of his who fell into a deep sleep when awoke on the morning of 09/22/2018. He had acute lower abdominal pain, was unable to void, presents to the emergency department, underwent evaluation there. He had a jump in his baseline creatinine from the baseline of 1.2, measured as recently as 06/07/2018, and the creatinine jumped to 3.69. With Sales catheter placement, he has had slow resolution of the elevation of his creatinine as well as some resolution of his elevated white blood cell count. This is highly suspicious for orthotopic neobladder rupture secondary to outlet obstruction as the patient is not a routine catheterizer or reinsurance clerk of his neobladder. INTERVAL EVENTS: The patient has continued to improve overnight. He has had a interval KUB study that shows clearance of most of the oral contrast that was administered for his small bowel follow-through studies, doing well today. PHYSICAL EXAMINATION: VITAL SIGNS: Temperature 98.5, pulse 77, respirations 16, O2 saturation on room air is 95%, blood pressure is 133/63. GENERAL: This is a pleasant awake, alert, GCS 15, white male in no apparent distress. HEAD, EARS, NOSE, AND THROAT: Extraocular movements are intact. Sclerae anicteric. Oropharynx is clear. NECK: Supple. LUNGS: Clear to auscultation bilaterally. CARDIAC: Regular rate and rhythm. ABDOMEN: Soft and nontender. There is no suprapubic fullness. There is no discomfort or pain this morning. A Sales catheter remains in place and is draining straw-colored urine with no significant particulates. NEUROLOGIC: The patient is ambulatory, shows ability to move all four extremities against gravity without difficulty. LABORATORY STUDIES: The patient did not have a.m. labs this morning except for a metabolic panel which shows blood urea nitrogen of 17, down from 40 on admission. Creatinine down to 0.83 from 3.6 at admission. These are better than his usual laboratory for renal function probably reflects some degree of hydration. ASSESSMENT AND PLAN: 1. The patient with a highly suspicious presentation for orthotopic neobladder leak secondary to outlet obstruction. This patient is currently managed with an indwelling Sales catheter, seems to be having general resolution of his sepsis type symptoms and a very significant improvement in serum creatinine simply with gravity bag drainage of his neobladder. A cystogram study performed earlier in the week did not demonstrate an actual leak and due to that, this patient probably could be managed with conservative measures which would include a long-term catheter drainage and cystogram study. Alternatively, he could undergo a early cystogram study to establish whether there actually is a leak. A leak probably should be repaired primarily if it is observed. 2. The patient does have a bladder calculus. This probably is secondary to large amount of mucous, this could be thinned by a number of methods and I will defer to Dr. Ceballos's management on that. Dr. Ceballos will probably see the patient tomorrow on rounds. Over 35 minutes of consultation and assessment time was spent in evaluation of this patient today. Job ID: [id number]
[2018-09-26] MEDS: cefTRIAXone\\ROCEPHIN 1 GM in Sodium Chloride 0.9% 100 ML IVPB SCH (13:01)
[2018-09-26] MEDS: metroNIDAZOLE 500 MG TAB PO SCH (17:30)
--- NOTE | 2018-09-26 17:54 | PRG ---
DATE OF SERVICE: 09/26/2018 SUBJECTIVE: Mr. Rodrigues is a 78-year-old man with history of cystectomy with neobladder formation. The patient has a long-standing left inguinal hernia. The patient was admitted with lower abdominal pain, which has since resolved with decompression of the patient's bladder outlet obstruction using a Sales catheter with bedside drainage. Today, the patient is awake and alert. Denies any abdominal pain. He is tolerating general diet. He is having normal bowel and urinary function. He has had no fevers or chills over the last 48 hours. OBJECTIVE: VITAL SIGNS: Current vital signs include blood pressure 112/58, pulse is 66, respiratory rate is 16, temperature 97.6 degrees Fahrenheit, oxygen saturation 98% on room air. ABDOMEN: Soft, nontender, nondistended. His left inguinal hernia is nontender to palpation and unchanged in size. LABORATORY FINDINGS: Today includes metabolic profile, sodium 140, potassium 3.6, chloride is 108, bicarb is 25, BUN 17, creatinine is now normal at 0.83. This is in contrast to the creatinine of 3.69, only four days ago. Glucose today is 89. IMPRESSION: 1. Resolved lower abdominal pain. 2. Resolved acute kidney injury secondary to bladder outlet obstruction. 3. Large chronic left inguinal hernia. No evidence of strangulation. PLAN: There is no acute surgical indication for this patient at this time. General surgery would therefore sign off and be available to re-evaluate the patient on demand. The patient's inguinal hernia could be repaired if there is any other reason for surgical intervention especially with respect to his neobladder issues. Another indication for repair of the large left inguinal hernia will be if there is any evidence of bowel obstruction from the incarceration. Above findings and plan discussed with the patient who indicates understanding of the information given. I have answered his questions. Job ID: [id number]
[2018-09-26] MEDS: Atorvastatin Calcium 10 MG TAB PO SCH (21:42)
[2018-09-27] MEDS: Acetaminophen 500 MG TAB PO SCH ×2 (05:47→10:48)
[2018-09-27] MEDS: metroNIDAZOLE 500 MG TAB PO SCH ×2 (05:47→10:49)
--- NOTE | 2018-09-27 06:51 | PDOC.FM ---
- Subjective Subjective: 78 yo gentleman with hx of bladder cancer s/p surgery who came in with cc of oliguria and was admitted for obstructive uropathy 2/2 bladder calculous and concern for orthotopic neobladder leak. Hosp day 4 O/n: no acute events. Per pt, seen by urology this morning and planning to discharge today with ryder in place and follow-up in one week in their office. He denied complaints this morning. - Objective MAR Reviewed: Yes Vital Signs & Weight: Vital Signs (12 hours) Temp Pulse Resp BP Pulse Ox 09/27/18 04:00 97.9 F 77 20 144/90 H 93 L 09/26/18 21:41 98.2 F 71 18 151/72 H 98 Weight Weight 101.333 kg I&O: 09/25/18 09/26/18 09/27/18 06:59 06:59 06:59 Intake Total 2380 1650 920 Output Total 1550 1675 1050 Balance 830 -25 -130 Result Diagrams: 09/25/18 07:07 09/26/18 04:12 Phys Exam - Physical Examination Constitutional: NAD HEENT: PERRLA, moist MMs Neck: no nodes, no JVD Respiratory: no wheezing, no rales, clear to auscultation bilateral Cardiovascular: RRR, no significant murmur Gastrointestinal: soft, non-tender, no distention, positive bowel sounds Musculoskeletal: no edema, pulses present Neurological: non-focal, normal sensation Psychiatric: normal affect, A&O x 3 Skin: no rash, normal turgor Dx/Plan (1) Uropathy, obstructive Code(s): N13.9 - OBSTRUCTIVE AND REFLUX UROPATHY, UNSPECIFIED Status: Acute (2) Bladder calculus Code(s): N21.0 - CALCULUS IN BLADDER Status: Acute (3) ROSIO (acute kidney injury) Code(s): N17.9 - ACUTE KIDNEY FAILURE, UNSPECIFIED Status: Acute (4) History of bladder cancer Code(s): Z85.51 - PERSONAL HISTORY OF MALIGNANT NEOPLASM OF BLADDER Status: Acute (5) history of bladder perforation Status: Acute (6) HTN (hypertension) Code(s): I10 - ESSENTIAL (PRIMARY) HYPERTENSION Status: Acute (7) Hyponatremia Code(s): E87.1 - HYPO-OSMOLALITY AND HYPONATREMIA Status: Resolved (8) Metabolic acidosis, increased anion gap Code(s): E87.2 - ACIDOSIS Status: Resolved (9) HLD (hyperlipidemia) Code(s): E78.5 - HYPERLIPIDEMIA, UNSPECIFIED Status: Acute - Plan Plan: 78 yo gentleman with hx of bladder cancer s/p surgery who came in with cc of oliguria and was admitted for obstructive uropathy 2/2 bladder calculous and concern for orthotopic neobladder leak. Hosp day 4 ROSIO 2/2 Obstructive Uropathy -Calcification seen on Ab xray. -CT findings do not show bladder leak but do show stone. -Renal U/S shows no severe acute obstructive process. -Urology consulted- Lin/Xander -->Possible concern there was a small leakage in neobladder causing infection. Recommend to keep ryder in for 10 days then follow-up with urology. -Rocephin and Flagyl for abx coverage- can likely transition to oral upon discharge; will discuss with urology duration of treatment UTI -U/A shows sign of infection. Lactic acid elevated upon admission. -abx coverage per above. -Urine cx shows mixed normal paras. Abdominal Pain 2/2 urinary leak. Urology- Lin/Xander- believe pt had urinary leak into abdomen. Likely cause of infection and distention. -CT abdominal/pelvis shows some dilated loops of bowel. -Small Bowel Follow through negative. -Morphine PRN. pain regimen controlling pain at this time. -blood cx - NGTD HTN -hold home meds as BP is stable at this time. HLD -continue home meds Hyponatremia (resolved) -Continue to trend Anion Gap Metabolic Acidosis (resolved) -BUN elevated upon admission, has trended down. -CO2 22. Anion Gap negative Dispo: likely discharge home this afternoon with urology follow-up in 1 week DVT: lovenox Code: DNR Diet: Regular Addendum - Attending - Attending Attestation Date/Time: 09/27/18 1121 I personally evaluated the patient and discussed the management with Dr. Lorenzana. I agree with the History, Examination, Assessment and Plan documented above with any addition or exceptions noted below.
[2018-09-27] MEDS: Aspirin 325 MG TAB PO SCH (08:38)
[2018-09-27] MEDS: Amlodipine 5 mg/Benazepril 10 mg CAP PO SCH (08:38)
[2018-09-27] MEDS: Fish Oil 1,000 MG CAP PO SCH (08:38)
[2018-09-27] MEDS: Metoprolol Tartrate 100 MG TAB PO SCH (08:38)
[2018-09-27] MEDS: Multivit, Therapeutic 1 TAB PO SCH (08:38)
[2018-09-27] MEDS: Enoxaparin Sodium 40 MG/0.4 ML SYRINGE SC SCH (08:39)
[2018-09-27] MEDS: Hydrochlorothiazide 25 MG TAB PO SCH (08:39)
[2018-09-27] MEDS ORDERED: Famotidine 20 MG TAB PO SCH (09:00)
[2018-09-27] MEDS: cefTRIAXone\\ROCEPHIN 1 GM in Sodium Chloride 0.9% 100 ML IVPB SCH (10:49)
[2018-09-27 10:55] VITALS: BP 111/58; TEMP 97.9
--- NOTE | 2018-09-27 11:03 | PRG ---
DATE OF SERVICE: 09/25/2018 SUBJECTIVE: Mr. Rodrigues is a 78-year-old man, who was admitted with lower abdominal pain, which is now resolving since Sales catheter had become very functional. This morning, he is awake and alert and states this is the best he has ever felt. He is tolerating clear liquid diet and having normal bowel and urinary function. OBJECTIVE: VITAL SIGNS: This morning include blood pressure 155/70, pulse 85, respiratory rate is 18, temperature 97.5 degrees Fahrenheit, oxygen saturation 94% on room air. ABDOMEN: Soft, nontender, nondistended. Bowel sounds in all 4 quadrants appear normoactive. The left inguinal hernia remains nontender. LABORATORY DATA: Laboratory findings today include [place] [address], hemoglobin and hematocrit are 11.9 and 36.6 respectively. Platelet count 158,000. Metabolic profile; sodium 138, potassium is 3.1, chloride is 109, bicarb is 23, BUN and creatinine are better today at 19 and 0.81. Glucose is 91. IMPRESSION: Resolved abdominal pain. There clearly is no clinical evidence of small bowel obstruction. We will advance the patient's diet to regular. There is no further acute surgical indication at this time. Job ID: [id number] [facility]
--- NOTE | 2018-09-27 13:19 | PQF ---
CLINICAL DOCUMENTATION IMPROVEMENT CLARIFICATION FORM: ICD-10 Updated PLEASE DO AN ADDENDUM TO THE PROGRESS NOTE WITH ANY DOCUMENTATION UPDATES OR ADDITIONS AND CARRY THROUGH TO DC SUMMARY. THANK YOU. DATE: 09/27/2018 09/30/2018 ATTN: Dr. Stewart/ Attending Dr. Crocker Please exercise your independent, professional judgment in responding to the clarification form. Clinical indicators are provided on the bottom of this form for your review Please check appropriate box(es): [ ] Sepsis due to: [ ] SIRS due to non-infectious process (please specify etiology) [ ] with organ dysfunction [ ] without organ dysfunction [ ] Localized infection without sepsis [ ] Other diagnosis [ ] Unable to determine In addition, please specify: Present on Admission (POA): [ ] Yes [ ] No [ ] Unable to determine For continuity of documentation, please document condition throughout progress notes and discharge summary. Thank You. CLINICAL INDICATORS - SIGNS / SYMPTOMS / LABS ED Record 09/22: BP 172/84, Pulse 49, Temp. 96.4 (Rectal) Hyponatremia. Renal failure. H&P 09/22 (Sabrusula): Rule out sepsis, although does not currently meet SIRS criteria. UTI, possible LAB 09/22: Lactic Acid 3.4 @ 1407 3.5 @ 1753 PN 09/25: (Gloria): His lactic acid has dropped nicely from 3.5 down to 2 PN 09/26 (Xander): Creatinine down to 0.83 from 3.6 at admission. The pt with a highly suspicious presentation for orthotopic neobladder leak 2/2 outlet obstruction. This pt is currently managed with an indwelling Sales catheter, seems to be having general resolution of his sepsis type symptoms and a very significant improvement in serum creatinine simply with gravity bag drainage of his neobladder. RISKS: H&P: 78 yo w/ pmh of bladder cancer and bladder surgery. ROSIO 2/2 Obstructive Uropathy. Anion Gap Metabolic Acidosis 2/2 Uremia. Hyponatremia. HTN. TREATMENT: Order 09/22: IV Rocephin for UTI Order 09/23-09/26: IV Flagyl 500mg Order 09/26: Flagyl po for Abdominal infection. Thank you, Nicole (This form is maintained as a part of the permanent medical record) 2014 [employer]. All Rights Reserved Nicole Hardy RN, BSN [email or web address] Office: [phone] Attending addendum: I was the discharge attending for the physician, at which time he was well appearing and any evidence of sepsis, if it existed, had resolved. Please reroute the note to the admitting physician. ARLIN
--- NOTE | 2018-09-29 11:17 | DIS ---
DATE OF ADMISSION: 09/22/2018 DATE OF DISCHARGE: 09/27/2018 RESIDENT: Pratibha Stewart MD CONSULTS: 1. Urology, Dr. Ceballos. 2. General Surgery, Marimar Clay/Dr. Escobar. 3. Urology, Dr. Jayme Terrell. PROCEDURES: 1. Acute abdominal series on 09/22/2018, extensive postop changes in the pelvis, 2.4 cm diameter, fairly densely calcified stone in the central pelvis possibly within the bladder or replaced bladder. 2. Abdominal/pelvic CT, 09/22/2018. Impression: Findings of cystectomy with development of a neobladder. There is a large bladder stone within the lower portion of neobladder itself. There is mild right hydronephrosis and hydroureter contiguous to the level of the neobladder. Small bilateral pleural effusion and bibasilar atelectasis. [id number] cystitis, cholelithiasis, colonic diverticulosis without evidence of active diverticulitis, mildly prominent loops of small bowel within the central abdomen without a definite transition zone. This can be artefactual or related to distention with the enteric contrast; however, mild enteritis cannot be entirely excluded. Large left inguinal hernia containing fat fluid in portions of the sigmoid colon, fat containing umbilical hernia. 3. Renal ultrasound, 09/22/2018. No evidence of high-grade obstruction. Right kidney measuring 11.3 cm in length and left kidney measuring 10.4 cm in length. No hydronephrosis or focal masses seen. Echogenic foci seen in the kidneys may represent nonobstructive calculi or vascular calcification. The right renal pelvis is dilated. Sales catheter in the urinary bladder. 4. Abdominal x-ray, 09/23/2018, impression: Poorly visualized enteric tube tip. Repeat examination recommended with better penetration. 5. Small bowel x-ray, 09/23/2018. No evidence of small bowel obstruction. 6. Pelvic CT, 09/23/2018. No evidence of leakage from the neobladder. Large urinary bladder stone. Other findings are otherwise stable. 7. Abdominal x-ray, 09/24/2018 enteric catheter positioning as above, basically noted the tip of which proceeds over the left upper quadrant. Visualized lung base appeared clear, contrast material was seen within the bowel and the visualized bowel. Gas pattern was nonspecific. 8. Abdominal x-ray, 09/25/2018. Contrast materials of the colon have decreased with significant amount remaining. Bowel pattern, nonspecific interval removal of nasogastric tube. 9. Abdominal x-ray, 05/21/2019. Nonobstructive bowel gas pattern. PRIMARY DIAGNOSES: 1. Acute kidney injury. 2. Obstructive uropathy. 3. Urinary tract infection. 4. Hypertension. 5. Hyperlipidemia. 6. Hyponatremia. 7. Anion gap metabolic acidosis. DISCHARGE MEDICATIONS: 1. Extra strength Tylenol 1000 mg oral every 6 hours. 2. Omnicef 300 mg oral twice daily. 3. Flagyl 500 mg oral 3 times a day. 4. Multivitamin 1 tablet oral daily. 5. Aspirin 325 mg oral daily. 6. Fish oil 1000 mg oral daily. 7. Metoprolol/hydrochlorothiazide 100-25, one tab oral daily. 8. Nitroglycerin 0.5 mg oral every 5 minutes as needed. 9. Amlodipine/benazepril 1 cap oral daily. 10. Lipitor 10 mg oral daily. HISTORY OF PRESENT ILLNESS/HOSPITAL COURSE: This is a 78-year-old gentleman, who initially presented to the ER with sharp shooting pain in his pelvis. He has a past medical history of 7 years ago having bladder cancer. On exam initially, did have abdominal distention and was very tender and hypoactive bowel sounds. He had a urinalysis that showed large blood, large leukocyte esterase, 2+ bacteria. He had a sodium of 126 and anion gap of 22, BUN was 34, creatinine 3.69, unknown baseline. He was admitted for acute kidney injury, secondary to obstructive uropathy and urinary tract infection. Abdominal pelvic CT was completed with findings of cystectomy with development of a neobladder. There is a large bladder stone in the lower portion of the neobladder. There were prominent loops of small bowel in the central abdomen without a definite transition zone, possibly could have some enteritis, also large left inguinal hernia containing fat fluid in portions of sigmoid colon. He received fluids overnight, had a Sales catheter placed, and Urology was consulted. Urology recommended the CT cystogram due to concerns for some free fluid found on his CAT scan, which could be attributed to a possibly ruptured neobladder. Results of CT cystogram showed no obvious evidence of bladder leak, although presentation was very suspicious for it. Kidney function improved during his hospitalization and overall symptoms improved with medical management and fluid resuscitation. Even after the cystogram, Urology was still concerned for possibly a small bladder leak. Urology did recommend leaving the Sales catheter in place for 10 to 14 days and then do a formal cystogram at that time. They did recommend that if there is a bladder leak at that time, they would just let it heal on its own with the Sales catheter in place unless it becomes septic again. After keeping the Sales in place for 10 to 14 days at that time, they will work on removing the stone from the neobladder. Surgery was also consulted and they did not recommend any surgical intervention. He was transitioned from Rocephin to Omnicef upon discharge and was continued on Flagyl p.o. upon discharge for a total duration of 14 days. Just recommended that he follow up with Urology in 1 week. He initially presented with hyponatremia and anion gap metabolic acidosis, both of which resolved during his hospital stay. His hypertension and hyperlipidemia were controlled on his home medications. In regard to UTI, his urine culture did not grow anything specific, just mixed paras. DISPOSITION: Stable. DISCHARGE INSTRUCTIONS: 1. Location: Home. 2. Diet: Heart healthy. 3. Activity: As tolerated. 4. Followup: Follow up with Urology within 1 week and with primary care provider within 1 week. The patient was discharged with a Sales and provided adequate education on Sales care. Job ID: [id number]
--- NOTE | 2018-10-01 10:45 | PQF ---
CLINICAL DOCUMENTATION IMPROVEMENT CLARIFICATION FORM: ICD-10 Updated PLEASE DO AN ADDENDUM TO THE PROGRESS NOTE WITH ANY DOCUMENTATION UPDATES OR ADDITIONS AND CARRY THROUGH TO DC SUMMARY. THANK YOU. DATE: 09/27/2018 ATTN: Dr. Stewart/ Attending Dr. Castro Please exercise your independent, professional judgment in responding to the clarification form. Clinical indicators are provided on the bottom of this form for your review Please check appropriate box(es): [ ] Sepsis due to Urinary Tract Infection and Obstructive Uropathy. [ ] Localized infection without sepsis [ ] Other diagnosis [ ] Unable to determine In addition, please specify: Present on Admission (POA): [ ] Yes [ ] No [ ] Unable to determine For continuity of documentation, please document condition throughout progress notes and discharge summary. Thank You. CLINICAL INDICATORS - SIGNS / SYMPTOMS / LABS ED Record 09/22: BP 172/84, Pulse 49, Temp. 96.4 (Rectal) Hyponatremia. Renal failure. H&P 09/22 (Gloria): Rule out sepsis, although does not currently meet SIRS criteria. UTI, possible LAB 09/22: Lactic Acid 3.4 @ 1407 3.5 @ 1753 PN 09/25: (Gloria): His lactic acid has dropped nicely from 3.5 down to 2 PN 09/26 (Xander): Creatinine down to 0.83 from 3.6 at admission. The pt with a highly suspicious presentation for orthotopic neobladder leak 2/2 outlet obstruction. This pt is currently managed with an indwelling Sales catheter, seems to be having general resolution of his sepsis type symptoms and a very significant improvement in serum creatinine simply with gravity bag drainage of his neobladder. DC Summary 09/27: Urology did recommend leaving the Sales catheter in place for 10 to 14 days & then do formal cystogram at that time. They did recommend that if there is a bladder leak at that time, they would just let it heal on its own with the Sales catheter in place unless it becomes septic again. RISKS: H&P: 78 yo w/ pmh of bladder cancer and bladder surgery. ROSIO 2/2 Obstructive Uropathy. Anion Gap Metabolic Acidosis 2/2 Uremia. Hyponatremia. HTN. TREATMENT: Order 09/22: IV Rocephin for UTI Order 09/23-09/26: IV Flagyl 500mg Order 09/26: Flagyl po for Abdominal infection. Thank you, Nicole (This form is maintained as a part of the permanent medical record) 2014 [employer], [place]. All Rights Reserved Nicole Hardy, RN, BSN [email or web address] Office: [phone] [facility]
== END 2018-09-27 14:13 | disposition home or self-care (01) | DRG 699 ==
LOC: ERS 07:01 → ERHOLD 08:45 → 2NO 13:52
PROVIDERS: ADMIT Family Medicine; ATTEND Family Medicine
DX: T83.2 Mechanical complication of graft of urinary organ (principal); N17.9 Acute kidney failure, unspecified; N13.6 Pyonephrosis; E87.1 Hypo-osmolality and hyponatremia; E87.2 Acidosis; N21.0 Calculus in bladder; N32.0 Bladder-neck obstruction; Z96.0 Presence of urogenital implants; K40.90 Unilateral inguinal hernia, without obstruction or gangrene, not specified as recurrent; N13.9 Obstructive and reflux uropathy, unspecified; I10 Essential (primary) hypertension; E78.5 Hyperlipidemia, unspecified; K21.9 Gastro-esophageal reflux disease without esophagitis; J44.9 Chronic obstructive pulmonary disease, unspecified; K80.20 Calculus of gallbladder without cholecystitis without obstruction; K57.30 Diverticulosis of large intestine without perforation or abscess without bleeding; M19.90 Unspecified osteoarthritis, unspecified site; E78.00 Pure hypercholesterolemia, unspecified; E66.9 Obesity, unspecified; Z90.6 Acquired absence of other parts of urinary tract; Z85.51 Personal history of malignant neoplasm of bladder; Z87.891 Personal history of nicotine dependence; Z79.82 Long term (current) use of aspirin; Z68.33 Body mass index [BMI] 33.0-33.9, adult; Z88.0 Allergy status to penicillin; Y83.2 Surgical operation with anastomosis, bypass or graft as the cause of abnormal reaction of the patient, or of later complication, without mention of misadventure at the time of the procedure
CPT/HCPCS: 36415; 51702; 72194; 74018; 74022; 74176; 74250; 76770; 80048; 80053; 81003; 81015; 82805; 83605; 83735; 84100; 85025; 85060; 87040; 87086; 93005; 96361; 96365; 96375; J0696; J1650; J2270; J2405; J7050; Q9963; S0028

== ENCOUNTER 2018-10-01 08:38 | Outpatient (CLI) | payer MEDICARE, BC ==
[2018-10-01] MEDS ORDERED: ISOVUE-370 76%-LOCM 1 ML ONE (09:52)
--- NOTE | 2018-10-01 12:45 | RAD ---
FLUOROSCOPIC CYSTOGRAM: CLINICAL HISTORY: Prior cystectomy with neobladder and history of recent obstruction due to neobladder calculus. FINDINGS: Retrograde instillation under gravity pressure of radiopaque contrast was instilled into the patient' s neobladder. There is no evidence of abnormal leak. Reflux of contrast upon adequate distention of the neobladder does occur within adjacent bowel reservoir, as well as within a dilated ureter. Scou t image reveals a large lamellated calculus of right hemipelvis and multiple metallic clips. as well as catheter tubing. IMPRESSION: No abnormal leakage from the neobladder is demonstrated under real-time fluoroscopy. POS: MAHNAZ
== END 2018-10-01 08:39 | disposition home or self-care (01) ==
LOC: CT 08:38
PROVIDERS: ATTEND Urology
DX: N21.0 Calculus in bladder (principal)
CPT/HCPCS: 51600; 74430; Q9966

== ENCOUNTER 2021-01-03 13:43 | Outpatient (CLI) | payer MEDICARE, BC ==
[2021-01-04 01:35] LABS: SARS-CoV-2 PCR by NAA Not Detected (NotDetected)
== END 2021-01-03 13:44 | disposition home or self-care (01) ==
LOC: LABBT 13:43
PROVIDERS: ATTEND Ophthalmology Retina Specialist
DX: Z01.812 Encounter for preprocedural laboratory examination (principal); H43.821 Vitreomacular adhesion, right eye; Z20.822 Contact with and (suspected) exposure to COVID-19
CPT/HCPCS: U0003; U0005; 87635

== ENCOUNTER 2021-01-08 05:50 | Day surgery (SDC) | payer MEDICARE, BC ==
[2021-01-07 10:39] VITALS: BMI 34.1
[2021-01-08] MEDS ORDERED: EPINEPHrine 0.3 MG in Ophthalmic Irrigation Solution 500 ML IRR SCH (06:00)
[2021-01-08] MEDS ORDERED: Cyclopentolate 1% Opth Drop 2 ML BOT ONE (06:05)
[2021-01-08] MEDS ORDERED: Phenylephrine 2.5% Ophth Soln 5 ML BOT ONE (06:05)
[2021-01-08] MEDS ORDERED: PROPOFOL 20 ML ONE (06:28)
[2021-01-08] MEDS ORDERED: Fentanyl 100 MCG/2 ML VIAL ONE (06:28)
[2021-01-08] MEDS ORDERED: Midazolam HCl 2 mg/2 ml Vial ONE (06:28)
[2021-01-08] MEDS ORDERED: Maxitrol 0.1% Opth Oint 3.5 GM TUBE ONE (07:12)
[2021-01-08] MEDS ORDERED: Lidocaine 4% PF 5 ML AMP ONE (07:12)
[2021-01-08] MEDS ORDERED: Bupivacaine PF 0.75% SDV 10 ML ONE (07:12)
[2021-01-08] MEDS ORDERED: Triamcinolone 40 MG/ML VIAL ONE (07:12)
== END 2021-01-08 08:30 | disposition home or self-care (01) ==
LOC: SDC 05:50
PROVIDERS: ATTEND Ophthalmology Retina Specialist
PROC: 08T43ZZ Resection of Right Vitreous, Percutaneous Approach (ICD-10-PCS; principal; 2021-01-08)
PROC: 08NE3ZZ Release Right Retina, Percutaneous Approach (ICD-10-PCS; 2021-01-08)
DX: H43.821 Vitreomacular adhesion, right eye (principal); H43.311 Vitreous membranes and strands, right eye; Z79.1 Long term (current) use of non-steroidal anti-inflammatories (NSAID); Z79.82 Long term (current) use of aspirin; Z79.899 Other long term (current) drug therapy; Z88.0 Allergy status to penicillin
CPT/HCPCS: 93005; 93010; J0171; J2250; J2704; J3010; J3301; J3490

== ENCOUNTER 2022-06-24 05:47 | Day surgery (SDC) | payer MEDICARE, BC ==
[2022-06-20 13:37] VITALS: BMI 32.5
[~2022-06-24 05:47] MED LIST: EPINEPHrine 0.3 MG in Ophthalmic Irrigation Solution 500 ML IRR SCH
[2022-06-24] MEDS ORDERED: Phenylephrine 2.5% Ophth Soln 5 ML BOT ONE (06:13)
[2022-06-24] MEDS ORDERED: Cyclopentolate 1% Opth Drop 2 ML BOT ONE (06:13)
[2022-06-24] MEDS ORDERED: fentaNYL PF 100 MCG/2 ML SYRINGE ONE (06:50)
[2022-06-24] MEDS ORDERED: PROPOFOL 20 ML ONE (06:50)
[2022-06-24] MEDS ORDERED: Triamcinolone 40 MG/ML VIAL ONE (07:16)
[2022-06-24] MEDS ORDERED: Maxitrol 0.1% Opth Oint 3.5 GM TUBE ONE (07:16)
[2022-06-24] MEDS ORDERED: Bupivacaine 0.75% 10 ML VIAL ONE (07:16)
[2022-06-24] MEDS ORDERED: Lidocaine 4% PF 5 ML AMP ONE (07:16)
== END 2022-06-24 08:17 | disposition home or self-care (01) ==
LOC: SDC 05:47
PROVIDERS: ATTEND Ophthalmology Retina Specialist
PROC: 08T53ZZ Resection of Left Vitreous, Percutaneous Approach (ICD-10-PCS; principal; 2022-06-24)
PROC: 08NF3ZZ Release Left Retina, Percutaneous Approach (ICD-10-PCS; 2022-06-24)
DX: H43.822 Vitreomacular adhesion, left eye (principal); H43.312 Vitreous membranes and strands, left eye; Z79.01 Long term (current) use of anticoagulants; Z79.899 Other long term (current) drug therapy; Z88.0 Allergy status to penicillin; Z98.41 Cataract extraction status, right eye; Z98.42 Cataract extraction status, left eye; Z96.1 Presence of intraocular lens
CPT/HCPCS: J0171; J2704; J3301; J3490